=== PATIENT | female | born 2000 | race Hispanic/Latino ===

== ENCOUNTER 2018-04-04 04:15 | Emergency (ER) | payer BC, OTHER, SELFPAY ==
--- NOTE | 2018-04-04 04:40 | ER ---
Nurse's Notes [facility] Name: Ivette Brown Age: 18 yrs Sex: Female : 2000 Arrival Date: 04/04/2018 Time: 04:20 Bed 6 Private MD: Diagnosis: Valentine's palsy Presentation: 04/04 04:26 Presenting complaint: Patient states: she has a hx of Valentine's Palsy and is having aa1 another flare up. Reports the right side of her face started feeling strange last night around 1800 and this morning she noticed that the right side of her face was not animating as much as her left. States, "this is exactly what happened the last time when I had Valentine's Palsy.". Transition of care: patient was not received from another setting of care. Onset of symptoms was April 03, 2018 at 18:00. Risk Assessment: Do you want to hurt yourself or someone else? Patient reports no desire to harm self or others. Initial Sepsis Screen: Does the patient meet any 2 criteria? No. Patient's initial sepsis screen is negative. Does the patient have a suspected source of infection? No. Patient's initial sepsis screen is negative. Care prior to arrival: None. 04:26 Method Of Arrival: Ambulatory aa1 04:26 Acuity: SACHI 3 aa1 Triage Assessment: 04:30 General: Appears in no apparent distress. comfortable, Behavior is calm, cooperative, aa1 appropriate for age. Pain: Denies pain. 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 - Social history:: Smoking status: Patient/guardian denies using tobacco. - Ebola Screening: : No symptoms or risks identified at this time. - Family history:: not pertinent. Screenin:30 Abuse screen: Denies threats or abuse. Nutritional screening: No deficits noted. tl2 Tuberculosis screening: No symptoms or risk factors identified. Fall Risk None identified. Assessment: 04:30 General: Appears in no apparent distress. comfortable, Behavior is calm, cooperative, tl2 appropriate for age. Pain: Denies pain. Neuro: Level of Consciousness is awake, alert, obeys commands, Oriented to person, place, time, situation. Neuro: Conditioner Tumbler are equal bilaterally Speech is normal, Reports numbness in right side of face since 04/03/18 1800. Cardiovascular: Denies chest pain. Respiratory: Airway is patent Respiratory effort is even, unlabored, Respiratory pattern is regular, symmetrical. GI: No signs and/or symptoms were reported involving the gastrointestinal system. : No signs and/or symptoms were reported regarding the genitourinary system. Derm: Skin is pink, warm \\T\\ dry. Musculoskeletal: No signs and/or symptoms reported regarding the musculoskeletal system. 04:57 Reassessment: Patient appears in no apparent distress at this time. Patient and/or tl2 family updated on plan of care and expected duration. Pain level reassessed. Patient is alert, oriented x 3, equal unlabored respirations, skin warm/dry/pink. Pt verbalized understanding of discharge instructions, need for follow up and prescription usage. Vital Signs: 04:30 BP 133 / 83; Pulse 92; Resp 18; Temp 98.2; Pulse Ox 98% on R/A; Weight 111.13 kg; aa1 Height 5 ft. 3 in. (160.02 cm); Pain 0/10; 04:30 Body Mass Index 43.40 (111.13 kg, 160.02 cm) aa1 ED Course: 04:20 Patient arrived in ED. es 04:28 Triage completed. aa1 04:30 Arm band placed on right wrist. aa1 04:30 Patient has correct armband on for positive identification. Bed in low position. Call tl2 light in reach. Side rails up X 1. 04:31 Kendrick Thompson MD is Attending Physician. julio c 04:39 Delano Velazquez MD is Referral Physician. julio c 04:55 Chery Jerez RN is Primary Nurse. tl2 04:57 No provider procedures requiring assistance completed. Patient did not have IV access tl2 during this emergency room visit. Administered Medications: 04:50 Drug: valACYclovir 1000 mg Route: PO; tl2 04:59 Follow up: Response: No adverse reaction; Medication administered at discharge. tl2 04:50 Drug: predniSONE 60 mg Route: PO; tl2 04:59 Follow up: Response: No adverse reaction; Medication administered at discharge. tl2 Outcome: 04:39 Discharge ordered by . julio c 04:57 Discharged to home ambulatory, with family. tl2 04:57 Condition: stable 04:57 Discharge instructions given to patient, Instructed on discharge instructions, follow up and referral plans. medication usage, Demonstrated understanding of instructions, follow-up care, medications, Prescriptions given X 3. 04:59 Patient left the ED. tl2 Signatures: Berkley Borja, RN RN aa1 Kendrick Thompson MD MD cha Salyer, Edna es Knox, Taylor, RN RN tl2
--- NOTE | 2018-04-04 04:40 | EDPHYS ---
Physician Documentation [facility] Name: Ivette Brown Age: 18 yrs Sex: Female : 2000 Arrival Date: 04/04/2018 Time: 04:20 Bed 6 Private MD: ED Physician Kendrick Thompson HPI: 04/04 04:35 This 18 yrs old Female presents to ER via Ambulatory with complaints of julio c Numbness Of Face. 04:35 The patient's problem is reported as a facial droop, on right. Onset: The julio c symptoms/episode began/occurred 2 day(s) ago. Duration: The episode is continuous, the symptoms became worse 1 day(s) ago. Context: the episode(s) was witnessed, by family. The symptoms are alleviated by nothing. The symptoms are aggravated by nothing. Associated signs and symptoms: The patient has no apparent associated signs or symptoms. Severity of symptoms: At their worst the symptoms were mild moderate in the emergency department the symptoms are unchanged. Patient's baseline: Neuro: alert and fully oriented. The patient has experienced a previous episode, last year. 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 - Social history:: Smoking status: Patient/guardian denies using tobacco. - Ebola Screening: : No symptoms or risks identified at this time. - Family history:: not pertinent. ROS: 04:35 Constitutional: Negative for fever, chills, and weight loss, Eyes: Negative for injury, julio c pain, redness, and discharge, ENT: Negative for injury, pain, and discharge, Neck: Negative for injury, pain, and swelling, Cardiovascular: Negative for chest pain, palpitations, and edema, Respiratory: Negative for shortness of breath, cough, wheezing, and pleuritic chest pain, Abdomen/GI: Negative for abdominal pain, nausea, vomiting, diarrhea, and constipation, Back: Negative for injury and pain, : Negative for injury, bleeding, discharge, and swelling, MS/Extremity: Negative for injury and deformity, Skin: Negative for injury, rash, and discoloration, Psych: Negative for depression, anxiety, suicide ideation, homicidal ideation, and hallucinations, Allergy/Immunology: Negative for hives, rash, and allergies, Endocrine: Negative for neck swelling, polydipsia, polyuria, polyphagia, and marked weight changes, Hematologic/Lymphatic: Negative for swollen nodes, abnormal bleeding, and unusual bruising. 04:35 Neuro: Positive for weakness, of the forehead, right eye, right cheek and right jaw. Exam: 04:35 Constitutional: This is a well developed, well nourished patient who is awake, alert, julio c and in no acute distress. Head/Face: Normocephalic, atraumatic. Eyes: Pupils equal round and reactive to light, extra-ocular motions intact. Lids and lashes normal. Conjunctiva and sclera are non-icteric and not injected. Cornea within normal limits. Periorbital areas with no swelling, redness, or edema. ENT: Nares patent. No nasal discharge, no septal abnormalities noted. Tympanic membranes are normal and external auditory canals are clear. Oropharynx with no redness, swelling, or masses, exudates, or evidence of obstruction, uvula midline. Mucous membranes moist. Neck: Trachea midline, no thyromegaly or masses palpated, and no cervical lymphadenopathy. Supple, full range of motion without nuchal rigidity, or vertebral point tenderness. No Meningismus. Chest/axilla: Normal chest wall appearance and motion. Nontender with no deformity. No lesions are appreciated. Cardiovascular: Regular rate and rhythm with a normal S1 and S2. No gallops, murmurs, or rubs. Normal PMI, no JVD. No pulse deficits. Respiratory: Lungs have equal breath sounds bilaterally, clear to auscultation and percussion. No rales, rhonchi or wheezes noted. No increased work of breathing, no retractions or nasal flaring. Abdomen/GI: Soft, non-tender, with normal bowel sounds. No distension or tympany. No guarding or rebound. No evidence of tenderness throughout. Back: No spinal tenderness. No costovertebral tenderness. Full range of motion. Skin: Warm, dry with normal turgor. Normal color with no rashes, no lesions, and no evidence of cellulitis. MS/ Extremity: Pulses equal, no cyanosis. Neurovascular intact. Full, normal range of motion. Psych: Awake, alert, with orientation to person, place and time. Behavior, mood, and affect are within normal limits. 04:35 Neuro: Orientation: is normal, appropriate for stated age, no acute changes, Mentation: is normal, appropriate for stated age, no acute changes, Memory: is normal, appropriate for stated age, no acute changes, Cranial nerves: grossly normal, is grossly normal based on the patient's age, no acute changes, Cerebellar function: is grossly normal, is grossly normal based on the patient's age, no acute changes, Motor: no acute changes, Sensation: is normal, Gait: is steady, appropriate for age, Babinski testing is normal. 04:37 CT study not indicated or reported. Reason for not performing CT: not necessary [facility] Vital Signs: 04:30 BP 133 / 83; Pulse 92; Resp 18; Temp 98.2; Pulse Ox 98% on R/A; Weight 111.13 kg; aa1 Height 5 ft. 3 in. (160.02 cm); Pain 0/10; 04:30 Body Mass Index 43.40 (111.13 kg, 160.02 cm) aa1 MDM: 04:31 Patient medically screened. [facility] 04:37 Data reviewed: vital signs, nurses notes. [facility] 04/04 04:41 Order name: Misc. Order: patch eye closed; Complete Time: 04:50 [facility] Administered Medications: 04:50 Drug: valACYclovir 1000 mg Route: PO; tl2 04:59 Follow up: Response: No adverse reaction; Medication administered at discharge. 2 04:50 Drug: predniSONE 60 mg Route: PO; tl2 04:59 Follow up: Response: No adverse reaction; Medication administered at discharge. tl2 Disposition: 04/04/18 04:39 Discharged to Home. Impression: Valentine's palsy. - Condition is Stable. - Discharge Instructions: Valentine Palsy, Adult. - Prescriptions for Artificial Tears - place 1 application by OPHTHALMIC route 6 times per day; 20 milliliter. Valtrex 1 g Oral Tablet - take 1 tablet by ORAL route every 8 hours for 7 days; 21 tablet. Prednisone 20 mg Oral Tablet - take 2 tablet by ORAL route once daily for 5 days; 10 tablet. - Medication Reconciliation Form, Thank You Letter, Antibiotic Education, Prescription Opioid Use, Work release form, Family Work Release form. - Follow up: Private Physician; When: 2 - 3 days; Reason: Recheck today's complaints, Continuance of care, Re-evaluation by your physician. Follow up: Delano Velazquez MD; When: 2 - 3 days; Reason: Recheck today's complaints, Re-evaluation by your physician. - Problem is new. - Symptoms have improved. Signatures: Berkley Borja RN RN aa1 Kendrick Thompson MD MD cha Knox, Taylor, RN RN tl2 Corrections: (The following items were deleted from the chart) 04:59 04:39 04/04/2018 04:39 Discharged to Home. Impression: Valentine's palsy. Condition is tl2 Stable. Forms are Medication Reconciliation Form, Thank You Letter, Antibiotic Education, Prescription Opioid Use. Follow up: Private Physician; When: 2 - 3 days; Reason: Recheck today's complaints, Continuance of care, Re-evaluation by your physician. Follow up: Delano Velazquez; When: 2 - 3 days; Reason: Recheck today's complaints, Re-evaluation by your physician. Problem is new. Symptoms have improved. julio c
[2018-04-04] MEDS ORDERED: predniSONE 20 MG TAB ONE (04:53)
[2018-04-04] MEDS ORDERED: VALACYCLOVIR 500 MG TAB ONE (04:53)
== END 2018-04-04 04:59 | disposition home or self-care (01) ==
LOC: ER 04:15
DX: G51.0 Bell's palsy (principal)
CPT/HCPCS: 99283; J7512

== ENCOUNTER 2018-04-20 05:55 | Emergency (ER) | payer BC ==
[2018-04-20 06:21] LABS: Urine Blood NEGATIVE (NEG); Urine Glucose NEGATIVE (NEG); Urine Protein NEGATIVE (NEG); Urine Specific Gravity 1.025 (1.005-1.030)
[2018-04-20] MEDS ORDERED: KETOROLAC 30 MG/ML INJ ONE (06:24)
[2018-04-20] MEDS ORDERED: ONDANSETRON 4 MG/2 ML VIAL ONE (06:24)
[2018-04-20] MEDS ORDERED: NA CHLORIDE 0.9% 1,000 ML ONE (06:24)
[2018-04-20 06:31] LABS: Absolute Lymphocytes (CBC) 1.1 K/uL (0.7-4.9); Absolute Monocytes 0.7 K/uL (0.1-1.3); Absolute Neutrophil 10.4 K/uL (1.8-8.0); Basophils % 0.2 % (0-1.3); Eosinophils % 0.5 % (0-4.4); Hematocrit 43.5 % (36.0-45.0); Lymphocytes % 8.6 % (15.3-44.8); MPV 11.1 fL (7.6-11.3); Monocytes % 5.6 % (3.3-12.3); RBC Red Blood Cell Count 5.17 M/uL (3.86-4.86)
[2018-04-20 06:39] LABS: ALT/SGPT 55 U/L (12-78); AST/SGOT 32 U/L (15-37); Albumin 3.8 g/dL (3.4-5.0); Alkaline Phosphatase 60 U/L (45-117); BUN Blood Urea Nitrogen 16 mg/dL (7-18); Bicarbonate 26 mmol/L (21-32); Bilirubin Direct 0.2 mg/dL (0-0.2); Bilirubin Total 0.7 mg/dL (0.2-1.0); Glucose Level 126 mg/dL (74-106); Lipase 83 U/L (73-393); Potassium 3.9 mmol/L (3.5-5.1); Protein, Total 7.9 g/dL (6.4-8.2); Sodium Level 142 mmol/L (136-145)
[2018-04-20 07:14] LABS: Urine White Blood Cell Casts SCAN
[2018-04-20 07:15] LABS: Blood Morphology Comment NOT SEEN (NOT SEEN); Platelet Estimate ADEQ; Platelets, Giant RARE
[2018-04-20] MEDS ORDERED: MAGNE/ALUM HYDROXD 30 ML UCUP ONE (07:15)
[2018-04-20] MEDS ORDERED: FAMOTIDINE 20 MG/2 ML VIAL IV ONE (07:15)
[2018-04-20] MEDS ORDERED: LIDOCAINE VISCOUS 2% SOLN 15 ML UDC ONE (07:15)
--- NOTE | 2018-04-20 07:33 | ER ---
Nurse's Notes [facility] Name: Ivette Brown Age: 18 yrs Sex: Female : 2000 Arrival Date: 04/20/2018 Time: 05:58 Bed 19 Private MD: Diagnosis: Upper abdominal pain, unspecified Presentation: 04/20 06:04 Presenting complaint: Patient states: she woke up around 0100 with abdominal pain and bb nausea denies vomiting, but states she has been waking up every hour with a bowel movement. Transition of care: patient was not received from another setting of care. Onset of symptoms was April 20, 2018. Risk Assessment: Do you want to hurt yourself or someone else? Patient reports no desire to harm self or others. Initial Sepsis Screen: Does the patient meet any 2 criteria? No. Patient's initial sepsis screen is negative. Does the patient have a suspected source of infection? No. Patient's initial sepsis screen is negative. Care prior to arrival: None. 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 - Social history:: Smoking status: Patient/guardian denies using tobacco. - Ebola Screening: : No symptoms or risks identified at this time. Screenin:20 Abuse screen: Denies threats or abuse. Denies injuries from another. Nutritional rr5 screening: No deficits noted. Tuberculosis screening: No symptoms or risk factors identified. Fall Risk Total Taylor Fall Scale indicates No Risk (0-24 pts). Assessment: 06:10 General: Appears in no apparent distress. comfortable, Behavior is calm, cooperative, rr5 appropriate for age. Pain: Complains of pain in abdomen Pain does not radiate. Pain currently is 9 out of 10 on a pain scale. Quality of pain is described as aching, Pain began suddenly, Is intermittent. Neuro: Level of Consciousness is awake, alert, obeys commands, Oriented to person, place, time, situation, Appropriate for age. Cardiovascular: Capillary refill < 3 seconds Patient's skin is warm and dry. Respiratory: Airway is patent Respiratory effort is even, unlabored, Respiratory pattern is regular, symmetrical. GI: Abdomen is obese, Bowel sounds present X 4 quads. Abd is soft and non tender. : No signs and/or symptoms were reported regarding the genitourinary system. EENT: No signs and/or symptoms were reported regarding the EENT system. Derm: Skin temperature is warm. Musculoskeletal: Capillary refill < 3 seconds, Range of motion: intact in all extremities. 06:10 GI: Reports lower abdominal pain, upper abdominal pain, nausea, Pain is 9 out of 10 on rr5 a pain scale. 06:56 Reassessment: Patient appears in no apparent distress at this time. Patient is alert, rr5 oriented x 3, equal unlabored respirations, skin warm/dry/pink. ultrasound at bedside done. awaiting for result. Patient states symptoms have improved. 07:43 Reassessment: Patient appears in no apparent distress at this time. Patient and/or tw2 family updated on plan of care and expected duration. Pain level reassessed. Patient is alert, oriented x 3, equal unlabored respirations, skin warm/dry/pink. Patient states symptoms have improved. Vital Signs: 06:07 BP 136 / 72; Pulse 110; Resp 16 S; Temp 98.6(O); Pulse Ox 97% on R/A; Weight 108.86 kg bb (R); Height 5 ft. 3 in. (160.02 cm) (R); Pain 9/10; 06:54 BP 131 / 69; Pulse 101; Resp 18; Pulse Ox 99% ; rr5 07:42 BP 129 / 86; Pulse 84; Resp 17; Pulse Ox 99% on R/A; tw2 06:07 Body Mass Index 42.51 (108.86 kg, 160.02 cm) bb ED Course: 05:58 Patient arrived in ED. es 06:00 Mendy Cannon FNP-C is PHCP. kb 06:00 Jose Gomez MD is Attending Physician. kb 06:05 Yobani Plummer, HUMBERTO is Primary Nurse. rr5 06:06 Triage completed. bb 06:07 Arm band placed on Patient placed in an exam room, on a stretcher, on pulse oximetry. bb Family accompanied patient. 06:10 Patient has correct armband on for positive identification. Bed in low position. Call rr5 light in reach. Side rails up X2. Pulse ox on. NIBP on. Warm blanket given. 06:10 Initial lab(s) drawn, by me, sent to lab. Inserted saline lock: 20 gauge in right bb antecubital area, using aseptic technique. Blood collected. 07:01 US Abdomen Limited In Process Unspecified. EDMS 07:13 Primary Nurse role handed off by Yobani Plummer, RN tw2 07:13 Paula Morales, RN is Primary Nurse. tw2 07:41 No provider procedures requiring assistance completed. IV discontinued, intact, tw2 bleeding controlled, No redness/swelling at site. Pressure dressing applied. Administered Medications: 06:18 Drug: Zofran 4 mg Route: IVP; Site: right antecubital; rr5 06:53 Follow up: Response: No adverse reaction rr5 06:20 Drug: TORadol 30 mg Route: IVP; Site: right antecubital; rr5 06:53 Follow up: Response: No adverse reaction rr5 06:25 Drug: NS 0.9% 1000 ml Route: IV; Rate: 1000 ml; Site: right antecubital; rr5 06:53 Follow up: IV Status: Infusion continued; IV Intake: 400ml rr5 07:08 Drug: GI Cocktail without - (Maalox Suspension 30 ml, Lidocaine Liquid 2 % 15 tw2 ml) Route: PO; 07:44 Follow up: Response: No adverse reaction tw2 07:08 Drug: Pepcid 20 mg Route: IVP; Site: right antecubital; tw2 07:44 Follow up: Response: No adverse reaction tw2 Intake: 06:53 IV: 400ml; Total: 400ml. rr5 Outcome: 07:32 Discharge ordered by MD. cole 07:43 Discharged to home ambulatory, with significant other. tw2 07:43 Condition: stable 07:43 Discharge instructions given to patient, significant other, Instructed on discharge instructions, follow up and referral plans. no drinking with medication, no driving heavy equipment, medication usage, Demonstrated understanding of instructions, follow-up care, medications. 07:45 Patient left the ED. tw2 Signatures: Dispatcher [employer] Mendy Martinez, CEMENTER MACHINE JOINER-C CEMENTER MACHINE JOINER-Ckb Anna Marie Gloria Brenda, RN RN bb Paula Morales, RN RN tw2 Yobani Plummer, RN RN rr5
--- NOTE | 2018-04-20 07:33 | EDPHYS ---
Physician Documentation [facility] Name: Ivette Brown Age: 18 yrs Sex: Female : 2000 Arrival Date: 04/20/2018 Time: 05:58 Bed 19 Private MD: ED Physician Jose Gomez HPI: 04/20 06:21 This 18 yrs old Female presents to ER via Ambulatory with complaints of kb Abdominal Problem. 06:21 The patient presents with abdominal pain in the upper abdomen. Onset: The kb symptoms/episode began/occurred this morning, at 01:00. The symptoms do not radiate. Associated signs and symptoms: Pertinent positives: nausea, Pertinent negatives: diarrhea, fever, vomiting. The symptoms are described as constant. Modifying factors: The symptoms are alleviated by nothing, the symptoms are aggravated by nothing. Severity of pain: At its worst the pain was mild moderate in the emergency department the pain is unchanged. The patient has not experienced similar symptoms in the past. The patient has not recently seen a physician. Pt reports she woke up with generalized abd pain at 0100. Reports nausea, no fever, diarrhea or vomiting. Has not had this pain in the past. Denies urinary symptoms. . 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 - Social history:: Smoking status: Patient/guardian denies using tobacco. - Ebola Screening: : No symptoms or risks identified at this time. ROS: 06:21 Constitutional: Negative for fever, chills, and weight loss, Neck: Negative for injury, kb pain, and swelling, Cardiovascular: Negative for chest pain, palpitations, and edema, Respiratory: Negative for shortness of breath, cough, wheezing, and pleuritic chest pain, Back: Negative for injury and pain, : Negative for injury, bleeding, discharge, and swelling, MS/Extremity: Negative for injury and deformity, Skin: Negative for injury, rash, and discoloration, Neuro: Negative for headache, weakness, numbness, tingling, and seizure. 06:21 Abdomen/GI: Positive for abdominal pain, nausea, Negative for vomiting, diarrhea, constipation, abdominal cramps, abdominal distension, anorexia. Exam: 06:21 Constitutional: This is a well developed, well nourished patient who is awake, alert, kb and in no acute distress. Head/Face: Normocephalic, atraumatic. ENT: Nares patent. No nasal discharge, no septal abnormalities noted. Tympanic membranes are normal and external auditory canals are clear. Oropharynx with no redness, swelling, or masses, exudates, or evidence of obstruction, uvula midline. Mucous membranes moist. Neck: Trachea midline, no thyromegaly or masses palpated, and no cervical lymphadenopathy. Supple, full range of motion without nuchal rigidity, or vertebral point tenderness. No Meningismus. Chest/axilla: Normal chest wall appearance and motion. Nontender with no deformity. No lesions are appreciated. Cardiovascular: Regular rate and rhythm with a normal S1 and S2. No gallops, murmurs, or rubs. Normal PMI, no JVD. No pulse deficits. Respiratory: Lungs have equal breath sounds bilaterally, clear to auscultation and percussion. No rales, rhonchi or wheezes noted. No increased work of breathing, no retractions or nasal flaring. Back: No spinal tenderness. No costovertebral tenderness. Full range of motion. Skin: Warm, dry with normal turgor. Normal color with no rashes, no lesions, and no evidence of cellulitis. MS/ Extremity: Pulses equal, no cyanosis. Neurovascular intact. Full, normal range of motion. Neuro: Awake and alert, GCS 15, oriented to person, place, time, and situation. Cranial nerves II-XII grossly intact. Motor strength 5/5 in all extremities. Sensory grossly intact. Cerebellar exam normal. Normal gait. 06:21 Abdomen/GI: Inspection: obese Bowel sounds: normal, in all quadrants, Palpation: soft, in all quadrants, mild abdominal tenderness, in the right upper quadrant and left upper quadrant. Vital Signs: 06:07 BP 136 / 72; Pulse 110; Resp 16 S; Temp 98.6(O); Pulse Ox 97% on R/A; Weight 108.86 kg bb (R); Height 5 ft. 3 in. (160.02 cm) (R); Pain 9/10; 06:54 BP 131 / 69; Pulse 101; Resp 18; Pulse Ox 99% ; rr5 07:42 BP 129 / 86; Pulse 84; Resp 17; Pulse Ox 99% on R/A; tw2 06:07 Body Mass Index 42.51 (108.86 kg, 160.02 cm) bb MDM: 06:00 Patient medically screened. kb 06:23 Data reviewed: vital signs, nurses notes. Data interpreted: Pulse oximetry: on room air kb is 97 %. Interpretation: normal. 07:01 Counseling: I had a detailed discussion with the patient and/or guardian regarding: the kb historical points, exam findings, and any diagnostic results supporting the discharge/admit diagnosis, lab results, radiology results, the need for outpatient follow up, a family practitioner, to return to the emergency department if symptoms worsen or persist or if there are any questions or concerns that arise at home. 04/20 06:07 Order name: Basic Metabolic Panel; Complete Time: 06:43 kb 04/20 06:07 Order name: CBC with Diff; Complete Time: 07:17 kb 04/20 06:07 Order name: Hepatic Function; Complete Time: 06:43 kb 04/20 06:07 Order name: Lipase; Complete Time: 06:43 kb 04/20 06:13 Order name: Urine Dipstick--Ancillary (enter results); Complete Time: 06:23 mw2 04/20 06:13 Order name: Urine --Ancillary (enter results); Complete Time: 06:23 mw2 04/20 06:07 Order name: IV Saline Lock; Complete Time: 06:16 kb 04/20 06:32 Order name: CBC Smear Scan; Complete Time: 07:17 EDMS 04/20 06:43 Order name: US Abdomen Limited kb 04/20 06:07 Order name: Labs collected and sent; Complete Time: 06:16 kb 04/20 06:07 Order name: Urine Dipstick-Ancillary (obtain specimen); Complete Time: 06:16 kb Administered Medications: 06:18 Drug: Zofran 4 mg Route: IVP; Site: right antecubital; rr5 06:53 Follow up: Response: No adverse reaction rr5 06:20 Drug: TORadol 30 mg Route: IVP; Site: right antecubital; rr5 06:53 Follow up: Response: No adverse reaction rr5 06:25 Drug: NS 0.9% 1000 ml Route: IV; Rate: 1000 ml; Site: right antecubital; rr5 06:53 Follow up: IV Status: Infusion continued; IV Intake: 400ml rr5 07:08 Drug: GI Cocktail without - (Maalox Suspension 30 ml, Lidocaine Liquid 2 % 15 tw2 ml) Route: PO; 07:44 Follow up: Response: No adverse reaction tw2 07:08 Drug: Pepcid 20 mg Route: IVP; Site: right antecubital; tw2 07:44 Follow up: Response: No adverse reaction tw2 Disposition: 18:21 Co-signature as Attending Physician, Jose Gomez MD I agree with the assessment and tw4 plan of care. Disposition: 04/20/18 07:32 Discharged to Home. Impression: Upper abdominal pain, unspecified. - Condition is Stable. - Discharge Instructions: Abdominal Pain, Adult, [id number]. - Prescriptions for Bentyl 20 mg Oral Tablet - take 1 tablet by ORAL route every 6 hours As needed; 20 tablet. Zofran 4 mg Oral Tablet - take 1 tablet by ORAL route every 6 hours As needed; 20 tablet. - Medication Reconciliation Form, Thank You Letter, Antibiotic Education, Prescription Opioid Use, Work release form, Family Work Release form. - Follow up: Emergency Department; When: As needed; Reason: Worsening of condition. Follow up: Private Physician; When: 2 - 3 days; Reason: Recheck today's complaints, Continuance of care, Re-evaluation by your physician. Signatures: Dispatcher [employer] [facility] Mendy Cannon, JOSHUA TORRES-Annmarie Montano, RN RN bb Paula Morales RN RN tw2 Jose Gomez MD MD tw4 Yobani Plummer, RN RN rr5 Corrections: (The following items were deleted from the chart) 07:45 07:32 04/20/2018 07:32 Discharged to Home. Impression: Upper abdominal pain, tw2 unspecified. Condition is Stable. Discharge Instructions: Abdominal Pain, Adult, [id number]. Prescriptions for Bentyl 20 mg Oral Tablet - take 1 tablet by ORAL route every 6 hours As needed; 20 tablet, Zofran 4 mg Oral Tablet - take 1 tablet by ORAL route every 6 hours As needed; 20 tablet. and Forms are Work release form, Family Work Release, Medication Reconciliation Form, Thank You Letter, Antibiotic Education, Prescription Opioid Use. Follow up: Emergency Department; When: As needed; Reason: Worsening of condition. Follow up: Private Physician; When: 2 - 3 days; Reason: Recheck today's complaints, Continuance of care, Re-evaluation by your physician. kb
--- NOTE | 2018-04-20 08:19 | RAD REPORT ---
EXAM DESCRIPTION: US - Abdomen Exam Limited - 04/20/2018 7:01 am CLINICAL HISTORY: ABD PAIN COMPARISON: Abdomen Exam Complete dated 06/05/2015 FINDINGS: The gallbladder demonstrates no gallstones. No pericholecystic fluid or gallbladder wall t hickening. The common bile duct is normal measuring 4 mm. The liver demonstrates no findings of intrahepatic biliary dilatation. IMPRESSION: Unremarkable examination.
== END 2018-04-20 07:45 | disposition home or self-care (01) ==
LOC: ER 05:55
DX: R10.10 Upper abdominal pain, unspecified (principal)
CPT/HCPCS: 36415; 76705; 80048; 80076; 81003; 81025; 83690; 85025; J2405; J7030

== ENCOUNTER 2018-09-26 11:51 | Emergency (ER) | payer BC ==
--- OUTSIDE RECORDS SUMMARY | 2018-09-26 11:56 | XMS REPORT | Continuity of Care Document ---
:2000 Author Organization [employer] Care Team Providers Name Role Phone [employer] Unavailable Unavailable Problems Problem Status Onset Classification Date Comments Source Date Reported Discharge 08/28/19 08/30/2016 [place] Diagnosis: [place] Pyelonephritis ABD PAIN Active 08/28/19 [place] [facility] [place] BLEEDING FROM Active 02/11/20 [place] MOUTH 15 [place] POSTOP BLEEDING Active 02/11/[address] [facility] POSTOP Active 02/11/20 [facility] TONSILLECTOMY 15 [facility] BLEED Center ABDOMINAL/BACK Active 02/23/19 [place] PAIN 13 [place] Enlarged tonsils Resolved 02/22/19 Problem 08/30/[address], [place] Medications Medication Details Route Status Patient Ordering Order Source Instructions Provider Date Ondansetron 4 MG 4 mg=1 tab, Active [place] Disintegrating PO, TID, PRN 2016 [facility] Tablet [Zofran] Nausea and Vomiting, X 4 day, # 10 tab, 0 Refill(s) Cephalexin 750 750 mg=1 cap, Active [place] MG Oral Capsule PO, Q8H, june 2016 [place] [Keflex] substitute 250 mg tabs/capsules if needed, X 10 day, # 30 cap, 0 Refill(s) Acetaminophen 650 mg=2 cap, Active [place] 325 MG Oral PO, Q4H, PRN 2016 [facility] Capsule fever, X 5 [Tylenol] day, # 60 cap, 0 Refill(s) Morphine 4 mg, Route: Inactive [place] IVP, ONCE, 2016 [facility] Dosing Weight 91.392, kg, Priority: STAT, Start date: 08/27/16 19:59:00 CDT, Stop date: 08/27/16 19:59:00 CDT Ondansetron 4 mg, Route: Inactive [place] IVP, ONCE, 2016 [facility] Dosing Weight 91.392, kg, Priority: STAT, Start date: 08/27/16 19:59:00 CDT, Stop date: 08/27/16 19:59:00 CDT Ceftriaxone 1 gm, Route: Inactive [place] IVPB, Drug 2016 [place] form: PDR/INJ, ONCE, Dosing Weight 91.392, kg, Priority: STAT, Start date: 08/27/16 19:59:00 CDT, Duration: 1 doses or times, Stop date: 08/27/16 19:59:00 CDT, ABX Indication: Urinary Tract Infection Acetaminophen 975 mg, Route: Inactive [place] PO, Drug form: 2017 [place] TAB, ONCE, Dosing Weight 91.392, kg, Start date: 08/27/16 19:59:00 CDT, Stop date: 08/27/16 19:59:00 CDT Sodium Chloride 1,000 mL, Inactive [place] 0.154 MEQ/ML 2,000 ml/hr, 2017 [place] Injectable Route: IV, Solution ONCE, Priority: STAT, Dosing Weight 91.392 kg, Start date: 08/27/16 19:59:00 CDT, Duration: 1 doses or times, Stop date: 08/27/16 19:59:00 CDT Saline Flush 10 mL, Route: Inactive [place] 0.9% IVP, Drug 2016 [place] Form: INJ, Dosing Weight 91.392, kg, PRN, PRN Line Flush, Start date: 08/27/16 19:59:00 CDT, Duration: 30 day, Stop date: 09/26/16 19:58:00 CDTNotes: (Same as: BD Posiflush) Hydromorphone 0.3528 mg, No Longer [place] 0.18 mL, Active 2014 Medical Route: IVP, Center Drug form: INJ, ONCE, Dosing Weight 88.2, kg, PRN Pain Score 4-6, Start date: 02/10/15 9:09:00, Duration: 24 hr, Stop date: 02/11/15 9:08:00Notes: Same as: Dilaudid Acetaminophen 12 mL, Route: No Longer 02/10/ [place] 21.7 MG/ML / PO, Drug Form: Active 2014 Medical Hydrocodone SOLN, Dosing Center Bitartrate 0.67 Weight 88.2, MG/ML Oral kg, Q6H, PRN Solution Pain Score 4-6, Start date: 02/10/15 8:54:00, Duration: 30 day, Stop date: 03/12/15 8:53:00Notes: Do not exceed 4gm/day of acetaminophen. (Same as: Zolvit) Famotidine 20 mg, Route: Inactive [place] IV, ONCE, 2014 Medical Dosing Weight Center 88.2, kg, Start date: 02/10/15 7:02:00, Stop date: 02/10/15 7:02:00 Zofran 4 mg, Route: Inactive 02/10[facility] IVP, Drug 2014 Medical form: INJ, Center ONCE, Dosing Weight 88.2, kg, Priority: STAT, Start date: 02/10/15 7:02:00, Stop date: 02/10/15 7:02:00 Sodium Chloride 1,000 mL, Inactive [place] 0.154 MEQ/ML 1,000 ml/hr, 2014 Medical Injectable Infuse Over: 1 Center Solution hr, Route: IV, ONCE, Priority: STAT, Dosing Weight 88.2 kg, Start date: 02/10/15 7:01:00, Duration: 1 doses or times, Stop date: 02/10/15 7:01:00 Afrin Severe 2 spray, Inactive [facility] Congestion Route: NASAL, 2014 Medical Drug Form: [place] CLAUS, Dosing Weight 88.2, kg, ONCE, Start date: 02/10/15 6:57:00, Stop date: 02/10/15 6:57:00Notes: (Same as: Afrin) Isolyte S PH-7.4 1,000 mL, Inactive 02/10[facility] ([place]) IV Route: IV, 2014 Medical Dosing Weight Center 88.2, kg, ONCE, Start date: 02/10/15 6:53:00, Stop date: 02/10/15 6:53:00 Morphine 2 mg, Route: Inactive [place] IVP, Drug 2014 [place] form: INJ, ONCE, Dosing Weight 89.091, kg, Priority: STAT, Start date: 02/10/15 4:37:00, Stop date: 02/10/15 4:37:00 Zofran ODT 4 mg, Route: Inactive [place] PO, Drug form: 2014 [place] TABDIS, ONCE, Dosing Weight 89.091, kg, Priority: STAT, Start date: 02/10/15 4:37:00, Stop date: 02/10/15 4:37:00 NS + KCL 20mEq/L 1,000 mL, Inactive [place] 1000ml (Premix) Rate: 100 2014 [place] 1,000 mL ml/hr, Infuse over: 10 hr, Route: IV, Dosing Weight 89.091 kg, Total Volume: 1,000, Start date: 02/10/15 3:33:00, Duration: 30 day, Stop date: 03/12/15 3:32:00Notes: PREMIX IV - Do Not Alter Motrin 600 mg 600 mg, 1 tab, PO Active Eliud [place] oral tablet PO, Q8H, PRN, 2012 [facility] take with food, 30 tab, Pain, Substitution Allowedtake with food [place] 5/325 oral 1 tab, Route: PO No Longer Eliud [place] tablet PO, Dosing Active 2012 [place] Weight 83.636, kg, ONCE, STAT, Start date: 02/24/12 17:41:00, Stop date: 02/24/12 17:41:00 Allergies, Adverse Reactions, Alerts No Known Medication Allergies Immunizations No Data Provided for This Section Results Order Name Results Value Reference Date Interpretation Comments Source Range CHEM PANEL Procalcitonin 0.10 0.00 - 07 [place] Lvl 0.10 [facility] CHEM PANEL Lactic Acid 0.7 0.5 - 2.2 08/28 [place] Lvl [facility] CHEM PANEL B/C Ratio 13 6 - 25 08/28 [place] CHEM PANEL Globulin 4.1 2.7 - 4.2 08/28 [place] [facility] CHEM PANEL AGAP 13.5 10.0 - 08/28 [place] 20.0 /2016 [place] CHEM PANEL A/G Ratio 0.9 0.7 - 1.6 08/28 [place] CHEM PANEL eGFR 127 08/28 Result Comment: The [facility] eGFR is calculated using the CKD-EPI formula. In most young, healthy individuals the eGFR will be >90 mL/min/1.73m2 . The eGFR declines with age. An eGFR of 60-89 may be normal in some populations, particularly the elderly, for whom the CKD-EPI formula has not been extensively validated. Use of the eGFR is not recommended in the following populations:< br/>
Jennyfer viduals with unstable creatinine concentration s, including patients and those with serious co-morbid conditions.<b r/>
Patie nts with extremes in muscle mass or diet.

The data above are obtained from the National Kidney Disease Education Program (NKDEP) which additionally recommends that when the eGFR is used in patients with extremes of body mass index for purposes of drug dosing, the eGFR should be multiplied by the estimated BMI. CHEM PANEL Calcium Lvl 8.2 8.5 - 10.5 08/28 [place] CHEM PANEL Total Protein 7.6 6.4 - 8.4 08/28 [place] CHEM PANEL Albumin Lvl 3.5 3.5 - 5.0 08/28 [place] CHEM PANEL CO2 24 24 - 32 08/28 [place] CHEM PANEL Chloride Lvl 102 95 - 109 08/28 [place] CHEM PANEL Sodium Lvl 136 135 - 145 08/28 [place] CHEM PANEL Potassium Lvl 3.5 3.5 - 5.1 08/28 [place] CHEM PANEL ALT 47 0 - 65 08/28 [place] CHEM PANEL Bili Total 1.1 0.2 - 1.3 08/28 [place] CHEM PANEL Alk Phos 56 39 - 136 08/28 [place] CHEM PANEL AST 33 0 - 37 08/28 [place] CHEM PANEL Creatinine 0.70 0.50 - 07 MH [place] Lvl 1.40 /2016 [place] CHEM PANEL Glucose Lvl 96 70 - 99 08/28 [place] CHEM PANEL BUN 9 7 - 22 08/28 [place] ENDOCRINOLO S Preg Negative Negative 08/28 [facility] *NA* /2016 [place] (08/27/16 8:09 PM) HEMATOLOGY Segs-Bands # 9.0 1.5 - 8.1 08/28 [place] HEMATOLOGY Basophils # 0.0 0.0 - 0.2 08/28 [place] HEMATOLOGY Basophils 0.2 0.0 - 1.0 08/28 [place] HEMATOLOGY Eosinophils 0.3 0.0 - 4.0 08/28 [place] HEMATOLOGY Lymphocytes # 1.1 1.0 - 5.5 08/28 [place] HEMATOLOGY Monocytes # 0.7 0.0 - 0.8 08/28 [place] HEMATOLOGY Eosinophils # 0.0 0.0 - 0.5 08/28 [place] HEMATOLOGY Lymphocytes 9.8 20.0 - 08/28 [place] 40.0 /2016 [place] HEMATOLOGY Monocytes 6.4 2.0 - 12.0 08/28 [place] HEMATOLOGY Segs 83.3 45.0 - 08/28 [place] 75.0 /2016 [place] HEMATOLOGY Platelet 69 133 - 450 08/28 [facility] HEMATOLOGY RDW 15.3 11.5 - 08/28 [place] 14.5 /2016 [facility] HEMATOLOGY MPV 10.9 7.4 - 10.4 08/28 [facility] HEMATOLOGY WBC 10.8 3.7 - 10.4 08/28 [facility] HEMATOLOGY RBC 4.72 4.20 - 08/28 [place] 5.40 /2016 [facility] HEMATOLOGY MCV 83.1 80.0 - 08/28 [place] 98.0 /2016 [facility] HEMATOLOGY Hct 39.2 36.0 - 08/28 [place] 48.0 [facility] HEMATOLOGY Hgb 13.1 12.0 - 08/28 [place] 16.0 /2016 [facility] HEMATOLOGY MCHC 33.3 32.0 - 08/28 [place] 36.0 /2016 [facility] HEMATOLOGY MCH 27.7 27.0 - 08/28 [place] 31.0 [place] URINE AND UA Mucus Few /LPF None Seen 08/28 [place] STOOL /LPF /2016 [place] URINE AND UA Spec Grav 1.018 <=1.030 08/28 [place] STOOL /2016 [place] URINE AND UA Bacteria Many /HPF None Seen 08/28 [place] STOOL /HPF /2016 [place] URINE AND UA 2.0 0.1 - 1.0 08/28 [place] STOOL Urobilinogen /2016 [place] URINE AND UA Bili Negative Negative 08/28 [place] STOOL *NA* /2016 [place] (08/27/16 8:09 PM) URINE AND UA Blood Moderate Negative 08/28 [place] STOOL *ABN* /2016 [facility] (08/27/16 8:09 PM) URINE AND UA Nitrite Negative Negative 08/28 [place] STOOL (08/27/16 8:09 PM) /2016 [place] URINE AND UA WBC 65 0 - 5 08/28 [place] STOOL /2016 [place] URINE AND UA Leuk Est Small Negative 08/28 [place] STOOL *ABN* /2016 [facility] (08/27/16 8:09 PM) URINE AND UA Sq Epi Occasional Few /LPF 08/28 [place] STOOL /LPF /2016 [place] URINE AND UA RBC 12 0 - 2 08/28 [place] STOOL /2016 [place] URINE AND UA Turbidity Slight Clear 08/28 [place] STOOL *ABN* /2016 [facility] (08/27/16 8:09 PM) URINE AND UA pH 5.0 5.0 - 8.0 08/28 [place] STOOL [place] URINE AND UA Color Yellow Yellow 08/28 [place] STOOL *NA* /2016 [facility] (08/27/16 8:09 PM) URINE AND UA Ketones 20 mg/dL Negative 08/28 [place] STOOL mg/dL /2016 [facility] URINE AND UA Protein Negative Negative 08/28 [place] STOOL mg/dL mg/dL [facility] URINE AND UA Glucose Negative Negative 08/28 [place] STOOL mg/dL mg/dL /2016 [facility] HEMATOLOGY Lymphocytes 14.1 20.0 - 02/11 [place] 40.0 [facility] HEMATOLOGY Segs 80.3 45.0 - 02/11 [place] 75.0 /2014 [facility] HEMATOLOGY Monocytes # 0.6 0.0 - 0.8 02/11 [facility] HEMATOLOGY Lymphocytes # 1.6 1.0 - 5.5 02/11 [facility] HEMATOLOGY Eosinophils 0.1 0.0 - 4.0 02/11 [facility] HEMATOLOGY Basophils 0.2 0.0 - 1.0 02/11 [facility] HEMATOLOGY Segs-Bands # 9.2 1.5 - 8.1 02/11 [facility] HEMATOLOGY Monocytes 5.3 2.0 - 12.0 02/11 [facility] HEMATOLOGY Hgb 9.7 12.0 - 02/11 [place] 16.0 [facility] HEMATOLOGY RBC 3.54 4.20 - 02/11 [place] 5.40 /2014 [facility] HEMATOLOGY Hct 30.2 36.0 - 02/11 [place] 48.0 /2014 [facility] HEMATOLOGY MCV 85.2 80.0 - 02/11 [place] 98.0 /2014 [facility] HEMATOLOGY WBC 11.4 3.7 - 10.4 02/11 [facility] HEMATOLOGY MCHC 32.2 32.0 - 12 [place] 36.0 [facility] HEMATOLOGY RDW 12.8 11.5 - 02/11 [place] 14.5 /2014 [facility] HEMATOLOGY MCH 27.5 27.0 - 02/11 [place] 31.0 [facility] HEMATOLOGY Platelet 120 133 - 450 02/11 [facility] HEMATOLOGY MPV 12.0 7.4 - 10.4 02/11 [facility] Center HEMATOLOGY Monocytes 1.8 2.0 - 12.0 02/10 [facility] HEMATOLOGY Segs 92.0 45.0 - 02/10 [place] 75.0 /2014 Medical [place] HEMATOLOGY Lymphocytes 5.9 20.0 - 02/10 [place] 40.0 /2014 [facility] HEMATOLOGY Monocytes # 0.2 0.0 - 0.8 02/10 [facility] HEMATOLOGY Basophils 0.1 0.0 - 1.0 02/10 [facility] HEMATOLOGY Lymphocytes # 0.8 1.0 - 5.5 02/10 [facility] HEMATOLOGY Eosinophils 0.2 0.0 - 4.0 02/10 [facility] HEMATOLOGY Segs-Bands # 12.0 1.5 - 8.1 02/10 [facility] HEMATOLOGY Platelet 117 133 - 450 02/10 [facility] HEMATOLOGY MPV 11.5 7.4 - 10.4 02/10 [facility] HEMATOLOGY MCHC 33.2 32.0 - 02/10 [place] 36.0 /2014 [facility] HEMATOLOGY RBC 4.06 4.20 - 02/10 [place] 5.40 /2014 [facility] HEMATOLOGY MCV 84.2 80.0 - 02/10 [place] 98.0 /2014 [facility] HEMATOLOGY MCH 27.9 27.0 - 12 [place] 31.0 [facility] HEMATOLOGY Hgb 11.4 12.0 - 02/10 [place] 16.0 /2014 [facility] HEMATOLOGY Hct 34.2 36.0 - 02/10 [place] 48.0 /2015 [facility] HEMATOLOGY WBC 13.1 3.7 - 10.4 02/10 [facility] HEMATOLOGY RDW 13.1 11.5 - 1220 [place] 14.5 [facility] BLOOD BANK ABO/Rh A POS 02/10 [facility] RESULTS /2014 [facility] BLOOD BANK Antibody Scrn Negative 02/10 [facility] RESULTS (02/10/15 7:06 AM) /2014 [facility] HEMATOLOGY Lymphocytes # 0.9 1.0 - 5.5 02/10 [facility] HEMATOLOGY Segs 89.4 45.0 - 02/10 [place] 75.0 /2014 [facility] HEMATOLOGY Segs-Bands # 16.0 1.5 - 8.1 02/10 [place] /2014 [facility] HEMATOLOGY Monocytes # 1.0 0.0 - 0.8 02/10 /2014 [facility] HEMATOLOGY Monocytes 5.4 2.0 - 12.0 02/10 [facility] HEMATOLOGY Eosinophils 0.1 0.0 - 4.0 02/10 [facility] HEMATOLOGY Lymphocytes 5.0 20.0 - 02/10 [place] 40.0 [facility] HEMATOLOGY Basophils 0.1 0.0 - 1.0 02/10 [facility] HEMATOLOGY MPV 11.6 7.4 - 10.4 02/10 /2014 [facility] HEMATOLOGY MCH 27.6 27.0 - 02/10 [place] 31.0 [facility] HEMATOLOGY MCHC 32.2 32.0 - 02/10 [place] 36.0 /2014 [facility] HEMATOLOGY RDW 13.1 11.5 - 02/10 [place] 14.5 /2014 [facility] HEMATOLOGY Hgb 12.2 12.0 - 02/10 [place] 16.0 [facility] HEMATOLOGY Platelet 129 133 - 450 02/10 [facility] HEMATOLOGY Hct 37.9 36.0 - 02/10 [place] 48.0 /2014 [facility] HEMATOLOGY MCV 85.8 80.0 - 02/10 [place] 98.0 /2014 [facility] HEMATOLOGY WBC 17.9 3.7 - 10.4 02/10 [facility] HEMATOLOGY RBC 4.42 4.20 - 02/10 [place] 5.40 /2014 [facility] HEMATOLOGY PTT 33.8 22.9 - 12 [place] 35.8 /2014 [facility] HEMATOLOGY INR 1.09 0.85 - 02/10 [place] 1.17 /2014 [facility] HEMATOLOGY PT 14.4 12.0 - 12/20 [facility] [place] 14.7 /2014 [facility] CHEM PANEL Calcium Lvl See Note 1 8.5 - 10.5 02/10 Result [facility] [place] (02/10/15 3:17 AM) /2014 Comment: [place] 1.22mmol/L;te st performed on iSTAT CHEM PANEL eGFR xxxxxxx 02/10 [facility] [place] (02/10/15 3:17 AM) [place] CHEM PANEL Creatinine 0.70 0.50 - 02/10 [facility] [place] Lvl 1.40 [place] CHEM PANEL Sodium Lvl 142 135 - 145 02/10 [place] CHEM PANEL CO2 See Note 1 24 - 32 02/10 Result [place] (02/10/15 3:17 AM) /2014 Comment: [place] 27mmol/L;test performed on iSTAT CHEM PANEL BUN 12 7 - 22 02/10 [place] CHEM PANEL Potassium Lvl 3.5 3.5 - 5.1 02/10 [place] CHEM PANEL Chloride Lvl 102 95 - 109 02/10 [place] CHEM PANEL Glucose Lvl 103 70 - 99 02/10 [place] HEMATOLOGY Large Plt Slight 02/10 [place] HEMATOLOGY Monocytes # 0.5 0.0 - 0.8 02/10 [place] HEMATOLOGY Basophils # 0.0 0.0 - 0.2 02/10 [place] HEMATOLOGY Lymphocytes # 2.1 1.0 - 5.5 02/10 [place] HEMATOLOGY Eosinophils # 0.1 0.0 - 0.5 02/10 [place] HEMATOLOGY Segs-Bands # 13.0 1.5 - 8.1 02/10 [place] HEMATOLOGY RBC Morph Normal 02/10 [facility] [place] (02/10/15 3:17 AM) [place] HEMATOLOGY Segs 83.2 45.0 - 02/10 MH [place] 75.0 /2015 [place] HEMATOLOGY Lymphocytes 13.1 20.0 - 02/10 MH [place] 40.0 /2015 [place] HEMATOLOGY Eosinophils 0.7 0.0 - 4.0 02/10 [place] HEMATOLOGY Monocytes 2.9 2.0 - 12.0 02/10 [facility] [place] HEMATOLOGY Basophils 0.1 0.0 - 1.0 02/10 [place] HEMATOLOGY Platelet 113 133 - 450 02/10 [place] HEMATOLOGY MCHC 33.0 32.0 - 02/10 [place] 36.0 /2014 [facility] HEMATOLOGY RDW 13.1 11.5 - 02/10 [place] 14.5 /2014 [facility] HEMATOLOGY MCV 85.8 80.0 - 02/10 [place] 98.0 /2014 [facility] HEMATOLOGY MPV 12.5 7.4 - 10.4 02/10 [place] /2014 [facility] HEMATOLOGY MCH 28.3 27.0 - 02/10 [place] 31.0 /2014 [facility] HEMATOLOGY WBC 15.6 3.7 - 10.4 02/10 [place] /2014 [facility] HEMATOLOGY Hct 40.8 36.0 - 02/10 [place] 48.0 /2014 [facility] HEMATOLOGY Hgb 13.5 12.0 - 02/10 [place] 16.0 /2014 [facility] HEMATOLOGY RBC 4.75 4.20 - 02/10 [place] 5.40 /2014 [facility] Microbiolog Culture: 02/24 [place] y Urine [facility] CHEMISTRY U Preg Negative Negative 02/23 Normal [place] (02/24/2012 17:25:00) [facility] URINALYSIS UA Bacteria Few /HPF None Seen 02/23 Normal [place] (02/24/2012 17:25:00) [facility] URINALYSIS UA Mucus Few /LPF None Seen 02/23 Normal [place] (02/24/2012 17:25:00) [facility] URINALYSIS UA WBC 11-20 /HPF None Seen 02/23 ABN [place] *ABN* /2012 [facility] (02/24/2012 17:25:00) URINALYSIS UA Sq Epi Rare /LPF Few 02/23 Normal [place] (02/24/2012 17:25:00) [facility] URINALYSIS UA RBC 3-5 /HPF 0 - 2 02/23 ABN [place] *ABN* /2012 [facility] (02/24/2012 17:25:00) Pathology Reports No Data Provided for This Section Diagnostic Reports Report Value Date Source ED Abdomen/Pelvis IV Clinical history: - Abdominal pain, fever. 08/27/2016 [facility] contrast only CT Sex: Female. : 2000. Technique: Axial scans through the abdomen and pelvis with intravenous contrast using 100 cc of Omnipaque 300 including multiplanar computer reformations. Total Dose Length Product: 823.'This exam was performed using radiation doses that are As Low As Reasonably Achievable ( ALARA).' Comparison studies: None. Findings: Liver: 17.8 cm. No mass. Spleen: The spleen is enlarged and measures 15 x 10 x 5.5 cm. Gallbladder: Borderline gallbladder distention 8 cm. Bile ducts: No biliary dilatation. Pancreas: normal. Adrenal glands: Normal. Kidneys: Normal. Bladder: Normal. Uterus: Anteverted. Uterine length: 7.4 cm. Adnexa: 2.5 cm right ovary cyst. Large and small bowel: Normal. No intestinal dilatation or obstruction. Perhaps there is a small amount of edema around the hepatic flexure versus incomplete distention. No small bowel dilatation. Small lymph nodes in the right lower quadrant Appendix: The appendix is not well seen, correlate clinically. Stomach and duodenum: Unremarkable. Aorta and iliac arteries: Normal. Retroperitoneum: No mass or adenopathy Free fluid: None. Lung bases: Clear. Musculature, abdominal wall and soft tissues: Normal Skeletal structures: Unremarkable. Impression: 1. Cannot exclude a small amount of colonic inflammation around the splenic flexure. 2. Splenomegaly. 3. Right ovarian cyst. Chest 1view DX Clinical history: - Undifferentiated Sepsis. 08/27/2016 [place] : 2000. Technique: Portable AP chest x-ray. Comparison: None. Heart size: Normal. Lungs: No acute consolidation. Pleura: No pleural effusion. No pneumothorax. Mediastinum and vignesh: Unremarkable. Musculoskeletal: Unremarkable. Support tubings: None. Impression: 1. No active disease in the chest. Consultation Notes No Data Provided for This Section Discharge Summaries No Data Provided for This Section History and Physicals No Data Provided for This Section Vital Signs Vital Sign Value Date Comments Source Heart Rate 93 08/28/2016 [place] Respitory Rate 20 08/28/2016 [place] Systolic (mm Hg) 134 08/28/2016 [place] Diastolic (mm Hg) 73 08/28/2016 [place] Temperature Oral (F) 98.7 F 08/28/2016 [place] Height 160.02 cm 08/28/2016 [place] Heart Rate 128 08/28/2016 [place] Respitory Rate 20 08/28/2016 [place] Systolic (mm Hg) 102 08/28/2016 [place] Diastolic (mm Hg) 67 08/28/2016 [place] BMI Calculated 35.69 08/28/2016 [place] Temperature Oral (F) 101.3 F 08/28/2016 [place] Weight 91.392 08/28/2016 [place] Systolic (mm Hg) 96 02/11/2015 [facility] Diastolic (mm Hg) 49 02/11/2015 [facility] Temperature Oral (F) 98.0 F 02/11/2015 [facility] Respitory Rate 20 02/11/2015 [facility] Heart Rate 87 02/11/2015 [facility] Systolic (mm Hg) 108 02/11/2015 [facility] Diastolic (mm Hg) 44 02/11/2015 [facility] Temperature Oral (F) 98.5 F 02/11/2015 [facility] Respitory Rate 18 02/11/2015 [facility] Temperature Oral (F) 98.0 F 02/11/2015 [facility] Respitory Rate 20 02/11/2015 [facility] Systolic (mm Hg) 100 02/11/2015 [facility] Diastolic (mm Hg) 47 02/11/2015 [facility] Heart Rate 105 2015 [facility] Height 177.8 cm 2015 [facility] BMI Calculated 27.9 2015 [facility] Weight 88.2 2015 [facility] Weight 86.364 2015 [facility] Height 177.8 cm 2015 [facility] Heart Rate 110 2015 [facility] BMI Calculated 27.32 2015 [facility] Temperature Oral (F) 98.1 F 2015 [place] Systolic (mm Hg) 120 2015 [place] Diastolic (mm Hg) 68 2015 [place] Respitory Rate 16 2015 [place] Heart Rate 69 2015 [place] Respitory Rate 18 2015 [place] Heart Rate 71 2015 [place] Temperature Oral (F) 98.4 F 2015 [place] Systolic (mm Hg) 112 2015 [place] Diastolic (mm Hg) 63 2015 [place] Weight 89.091 2015 [place] Weight 83.636 02/24/2012 [place] Encounters Location Location Encounter Encounter Reason Attending ADM DC Status Source Details Type Number For Provider Date Date Visit Emergency [id number] ABDOMIN LIAM 02/23 02/23 Active [place] [facility] AL/BACK ELIUD /2012 [facility] Emergency [id number] Anushka 02/10 02/10 [facility] Adelso /2014 [facility] OBS [id number] Jonathancak 02/10 02/11 [facility] Observation Evelynmarcos /2014 [facility] Emergency [id number] Mateo 08/28 08/28 [place] Joce Nathan /2016 [facility] [place] Procedures Procedure Code Date Perfomer Comments Source Tonsillectomy and [id number] 02/08/2015 [place] [facility] adenoidectomy<sup>1</ Hospital [place] sup> Tonsillectomy and [id number] 02/08/2015 [place] [facility] adenoidectomy<sup>1</ Hospital Medical sup> Center Manual reduction of [id number] [facility] intussusception [place] Manual reduction of [id number] [facility] intussusception [place] [facility] [id number] [facility] Assessment and Plan Assessment and Plan Date Source Extracted from:Title: Clinical Document 02/11/2015 [facility] Author: Juvenal Herring MD Date: 02/11/15 ENT Progress Note LUIS A no bleeding tolerating PO pain controlled post-surgical changes as expected in tonsillar fossa no bleeding visualized 02/11 0321 WBC 11.4 H RBC 3.54 L Hgb 9.7 L Hct 30.2 L MCV 85.2 MCH 27.5 MCHC 32.2 RDW 12.8 Platelet 120 L MPV 12.0 H Segs 80.3 H Monocytes 5.3 Lymphocytes 14.1 L Eosinophils 0.1 Basophils 0.2 Segs-Bands # 9.2 H Lymphocytes # 1.6 Monocytes # 0.6 plan d/c home today f/u with Dr. Maguire already has pain medication at home Juvenal Herring MD Resident, Department of Otorhinolaryngology - Head and Neck Surgery Adult ENT Pager: [phone] Pediatric ENT Pager: [phone] Plan of Care No Data Provided for This Section Social History Social History Date Source Social History TypeResponse 2015 [facility] Substance Abuse Use: None. Alcohol Never Smoking Status Never smoker; Exposure to Tobacco Smoke None; Cigarette Smoking Last 365 Days No; Reg Smoking Cessation Counseling No Social History TypeResponse 2015 [facility] Substance Abuse Use: None. Alcohol Never Smoking Status Never smoker; Lives with someone who smokes; Cigarette Smoking Last 365 Days No ; Reg Smoking Cessation Counseling No Family History No Data Provided for This Section Advance Directives No Data Provided for This Section Functional Status No Data Provided for This Section
--- OUTSIDE RECORDS SUMMARY | 2018-09-26 11:57 | XMS REPORT | Summary of Care ---
:2000 Author Organization [facility] Address [address], [place] [address]- Encounter HQ Barry_rei(FIN) [id number] Date(s): 02/10/15 - 02/11/[address] Professional Services provided by [facility] [place] [address]- Discharge Disposition: Home Attending Physician: Sherri Barnes MD Admitting Physician: Sherri Barnes MD Referring Physician: Anushka Darden MD Vital Signs Most recent to oldest 1 2 3 [Reference Range]: Height 177.8 cm 177.8 cm (02/10/15 6:14 AM) (02/10/15 6:04 AM) Temperature Oral [96.8-99.7 98.0 DegF 98.5 DegF 98.0 DegF DegF] (02/11/15 9:16 AM) (02/11/15 4:09 AM) (02/11/15 12:12 AM) Blood Pressure 96/49 mmHg 108/44 mmHg 100/47 mmHg [90-138/45-84 mmHg] (02/11/15 9:16 AM) (02/11/15 4:09 AM) (02/11/15 12:12 AM ) Respiratory Rate [14-20 20 BRMIN 18 BRMIN 20 BRMIN BRMIN] (02/11/15 9:16 AM) (02/11/15 4:09 AM) (02/11/15 12:12 AM) Peripheral Pulse Rate 87 bpm 105 bpm 110 bpm [55-90 bpm] (02/11/15 9:16 AM) *HI* *HI* (02/10/15 7:56 AM) (02/10/15 6:04 AM) Weight 88.2 kg 86.364 kg (02/10/15 6:14 AM) (02/10/15 6:04 AM) Body Mass Index 27.9 m2 27.32 m2 (02/10/15 6:14 AM) (02/10/15 6:04 AM) Problem List Condition Effective Dates Status Health Status Informant Enlarged tonsils(Confirmed) 2005 Resolved Allergies, Adverse Reactions, Alerts Substance Reaction Severity Status NKDA Active Medications acetaminophen-hydrocodone 325 mg-10 mg/15 mL oral solution 12 mL, Route: PO, Drug Form: SOLN, Dosing Weight 88.2, kg, Q6H, PRN Pain Score 4 -6, Start date: 02/10/15 8:54:00, Duration: 30 day, Stop date: 03/12/15 8:53:00 Notes: Do not exceed 4gm/day of acetaminophen. (Same as: Zolvit) Start Date: 02/10/15 Stop Date: 02/11/15 Status: DiscontinuedAfrin Severe Congestion 2 spray, Route: NASAL, Drug Form: SPRY, Dosing Weight 88.2, kg, ONCE, Start date : 02/10/15 6:57:00, Stop date: 02/10/15 6:57:00 Notes: (Same as: Afrin) Start Date: 02/10/15 Stop Date: 02/10/15 Status: Completedfamotidine 20 mg, Route: IV, ONCE, Dosing Weight 88.2, kg, Start date: 02/10/15 7:02:00, Stop date: 02/10/15 7:02:00 Start Date: 02/10/15 Stop Date: 02/10/15 Status: Completedhydromorphone 0.3528 mg, 0.18 mL, Route: IVP, Drug form: INJ, ONCE, Dosing Weight 88.2, kg, PRN Pain Score 4-6, Start date: 02/10/15 9:09:00, Duration: 24 hr, Stop date: 9:08:00 Notes: Same as: Dilaudid Start Date: 02/10/15 Stop Date: 02/11/15 Status: CompletedIsolyte S PH-7.4 (Bolus) IV 1,000 mL, Route: IV, Dosing Weight 88.2, kg, ONCE, Start date: 02/10/15 6:53:00 , Stop date: 156:53:00 Start Date: 02/10/15 Stop Date: 02/10/15 Status: CompletedSodium Chloride 0.9% (Bolus) IV 1,000 mL, 1,000 ml/hr, Infuse Over: 1 hr, Route: IV, ONCE, Priority: STAT, Dosing Weight 88.2 kg, Start date: 02/10/15 7:01:00, Duration: 1 doses or times , Stop date: 02/10/15 7:01:00 Start Date: 02/10/15 Stop Date: 02/10/15 Status: CompletedZofran 4 mg, Route: IVP, Drug form: INJ, ONCE, Dosing Weight 88.2, kg, Priority: STAT, Start date: 157:02:00, Stop date: 02/10/15 7:02:00 Start Date: 02/10/15 Stop Date: 02/10/15 Status: Completed Results BLOOD BANK RESULTS Most recent to oldest [Reference Range]: 1 2 3 ABO/Rh A POS *Unknown* (02/10/15 7:06 AM) Antibody Scrn Negative (02/10/15 7:06 AM) HEMATOLOGY Most recent to oldest 1 2 3 [Reference Range]: WBC [3.7-10.4 K/CMM] 11.4 K/CMM 13.1 K/CMM 17.9 K/CMM *HI* *HI* *HI* (02/11/15 3:21 AM) (02/10/15 3:21 PM) (02/10/15 7:06 AM) RBC [4.20-5.40 M/CMM] 3.54 M/CMM 4.06 M/CMM 4.42 M/CMM *LOW* *LOW* (02/10/15 7:06 AM) (02/11/15 3:21 AM) (02/10/15 3:21 PM) Hgb [12.0-16.0 g/dL] 9.7 g/dL 11.4 g/dL 12.2 g/dL *LOW* *LOW* (02/10/15 7:06 AM) (02/11/15 3:21 AM) (02/10/15 3:21 PM) Hct [36.0-48.0 %] 30.2 % 34.2 % 37.9 % *LOW* *LOW* (02/10/15 7:06 AM) (02/11/15 3:21 AM) (02/10/15 3:21 PM) MCV [80.0-98.0 fL] 85.2 fL 84.2 fL 85.8 fL (02/11/15 3:21 AM) (02/10/15 3:21 PM) (02/10/15 7:06 AM) MCH [27.0-31.0 pg] 27.5 pg 27.9 pg 27.6 pg (02/11/15 3:21 AM) (02/10/15 3:21 PM) (02/10/15 7:06 AM) MCHC [32.0-36.0 g/dL] 32.2 g/dL 33.2 g/dL 32.2 g/dL (02/11/15 3:21 AM) (02/10/15 3:21 PM) (02/10/15 7:06 AM) RDW [11.5-14.5 %] 12.8 % 13.1 % 13.1 % (02/11/15 3:21 AM) (02/10/15 3:21 PM) (02/10/15 7:06 AM) Platelet [133-450 K/CMM] 120 K/CMM 117 K/CMM 129 K/CMM *LOW* *LOW* *LOW* (02/11/15 3:21 AM) (02/10/15 3:21 PM) (02/10/15 7:06 AM) MPV [7.4-10.4 fL] 12.0 fL 11.5 fL 11.6 fL *HI* *HI* *HI* (02/11/15 3:21 AM) (02/10/15 3:21 PM) (02/10/15 7:06 AM) Segs [45.0-75.0 %] 80.3 % 92.0 % 89.4 % *HI* *HI* *HI* (02/11/15 3:21 AM) (02/10/15 3:21 PM) (02/10/15 7:06 AM) Lymphocytes [20.0-40.0 %] 14.1 % 5.9 % 5.0 % *LOW* *LOW* *LOW* (02/11/15 3:21 AM) (02/10/15 3:21 PM) (02/10/15 7:06 AM) Monocytes [2.0-12.0 %] 5.3 % 1.8 % 5.4 % (02/11/15 3:21 AM) *LOW* (02/10/15 7:06 AM) (02/10/15 3:21 PM) Eosinophils [0.0-4.0 %] 0.1 % 0.2 % 0.1 % (02/11/15 3:21 AM) (02/10/15 3:21 PM) (02/10/15 7:06 AM) Basophils [0.0-1.0 %] 0.2 % 0.1 % 0.1 % (02/11/15 3:21 AM) (02/10/15 3:21 PM) (02/10/15 7:06 AM) Segs-Bands # [1.5-8.1 9.2 K/CMM 12.0 K/CMM 16.0 K/CMM K/CMM] *HI* *HI* *HI* (02/11/15 3:21 AM) (02/10/15 3:21 PM) (02/10/15 7:06 AM) Lymphocytes # [1.0-5.5 1.6 K/CMM 0.8 K/CMM 0.9 K/CMM K/CMM] (02/11/15 3:21 AM) *LOW* *LOW* (02/10/15 3:21 PM) (02/10/15 7:06 AM) Monocytes # [0.0-0.8 K/CMM] 0.6 K/CMM 0.2 K/CMM 1.0 K/CMM (02/11/15 3:21 AM) (02/10/15 3:21 PM) *HI* (02/10/15 7:06 AM) PT [12.0-14.7 seconds] 14.4 seconds (02/10/15 7:06 AM) INR [0.85-1.17] 1.09 (02/10/15 7:06 AM) PTT [22.9-35.8 seconds] 33.8 seconds (02/10/15 7:06 AM) Immunizations No data available for this section Procedures Procedure Date Related Diagnosis Body Site Tonsillectomy and adenoidectomy1 02/08/15 [facility] Social History Social History Type Response Substance Abuse Use: None. Alcohol Never Smoking Status Never smoker; Lives with someone who smokes; Cigarette Smoking Last 365 Days No; Reg Smoking Cessation Counseling No Assessment and Plan Extracted from: Title: Clinical Document Author: Juvenal Herring MD Date: 02/11/15 ENT [...] Head and Neck Surgery Adult ENT Pager: [phone] Pediatric ENT Pager: [phone]
--- OUTSIDE RECORDS SUMMARY | 2018-09-26 11:57 | XMS REPORT | Summary of Care ---
:2000 Author Organization [facility] Address [address] [place], [place] [address]- Encounter HQ Barry_rei([facility]) [id number] Date(s): 08/27/16 - 08/27/16 [facility] [address] [place] [address]- Discharge Diagnosis: Pyelonephritis Discharge Disposition: Home or Self Care Attending Physician: Mateo Evans MD Vital Signs Most recent to oldest [Reference Range]: 1 2 Height 160.02 cm (08/27/16 7:11 PM) Temperature Oral [96.4-99.1 DegF] 98.7 DegF 101.3 DegF (08/27/16 9:18 PM) *HI* (08/27/16 7:11 PM) Blood Pressure [90-140/60-90 mmHg] 134/73 mmHg 102/67 mmHg (08/27/16 9:18 PM) (08/27/16 7:11 PM) Respiratory Rate [14-20 BRMIN] 20 BRMIN 20 BRMIN (08/27/16 9:18 PM) (08/27/16 7:11 PM) Peripheral Pulse Rate [60-100 bpm] 93 bpm 128 bpm (08/27/16 9:18 PM) *HI* (08/27/16 7:11 PM) Weight 91.392 kg (08/27/16 7:11 PM) Body Mass Index 35.69 m2 (08/27/16 7:11 PM) Problem List Condition Effective Dates Status Health Status Informant Enlarged tonsils(Confirmed) 2005 Resolved Allergies, Adverse Reactions, Alerts Substance Reaction Severity Status NKDA Active Medications acetaminophen 975 mg, Route: PO, Drug form: TAB, ONCE, Dosing Weight 91.392, kg, Start date: 08/27/16 19:59:00 CDT, Stop date: 08/27/16 19:59:00 CDT Start Date: 08/27/16 Stop Date: 08/27/16 Status: CompletedcefTRIAXone 1 gm, Route: IVPB, Drug form: PDR/INJ, ONCE, Dosing Weight 91.392, kg, Priority : STAT, Start date: 08/27/16 19:59:00 CDT, Duration: 1 doses or times, Stop date : 08/27/16 19:59:00 CDT, ABX Indication: Urinary Tract Infection Start Date: 08/27/16 Stop Date: 08/27/16 Status: CompletedKeflex 750 mg oral capsule 750 mg=1 cap, PO, Q8H, may substitute 250 mg tabs/capsules if needed, X 10 day, # 30 cap, 0 Refill(s) Start Date: 08/27/16 Stop Date: 09/06/16 Status: Orderedmorphine Sulfate 4 mg, Route: IVP, ONCE, Dosing Weight 91.392, kg, Priority: STAT, Start date: 19:59:00 CDT,Stop date: 08/27/16 19:59:00 CDT Start Date: 08/27/16 Stop Date: 08/27/16 Status: Completedondansetron 4 mg, Route: IVP, ONCE, Dosing Weight 91.392, kg, Priority: STAT, Start date: 19:59:00 CDT,Stop date: 08/27/16 19:59:00 CDT Start Date: 08/27/16 Stop Date: 08/27/16 Status: CompletedSaline Flush 0.9% 10 mL, Route: IVP, Drug Form: INJ, Dosing Weight 91.392, kg, PRN, PRN Line Flush , Start date: 08/27/16 19:59:00 CDT, Duration: 30 day, Stop date: 09/26/16 19:58 :00 CDT Notes: (Same as: BD Posiflush) Start Date: 08/27/16 Stop Date: 08/27/16 Status: DiscontinuedSodium Chloride 0.9% IV (Sodium Chloride 0.9% (Bolus) IV) 1,000 mL, 2,000 ml/hr, Route: IV, ONCE, Priority: STAT, Dosing Weight 91.392 kg , Start date: 08/27/16 19:59:00 CDT, Duration: 1 doses or times, Stop date: 08/08 19:59:00 CDT Start Date: 08/27/16 Stop Date: 08/27/16 Status: CompletedTylenol 325 mg oral capsule 650 mg=2 cap, PO, Q4H, PRN fever, X 5 day, # 60 cap, 0 Refill(s) Start Date: 08/27/16 Stop Date: 09/01/16 Status: OrderedZofran ODT 4 mg oral tablet, disintegrating 4 mg=1 tab, PO, TID, PRN Nausea and Vomiting, X 4 day, # 10 tab, 0 Refill(s) Start Date: 08/27/16 Stop Date: 08/31/16 Status: Ordered Results ELECTROLYTES Most recent to oldest [Reference Range]: 1 Sodium Lvl [135-145 mEq/L] 136 mEq/L (08/27/16 8:09 PM) Potassium Lvl [3.5-5.1 mEq/L] 3.5 mEq/L (08/27/16 8:09 PM) Chloride Lvl [95-109 mEq/L] 102 mEq/L (08/27/16 8:09 PM) CO2 [24-32 mEq/L] 24 mEq/L (08/27/16 8:09 PM) AGAP [10.0-20.0 mEq/L] 13.5 mEq/L (08/27/16 8:09 PM) CHEM PANEL Most recent to oldest [Reference Range]: 1 Creatinine Lvl [0.50-1.40 mg/dL] 0.70 mg/dL (08/27/16 8:09 PM) eGFR 127 mL/min/1.73m2 1 *NA* (08/27/16 8:09 PM) BUN [7-22 mg/dL] 9 mg/dL (08/27/16 8:09 PM) B/C Ratio [6-25] 13 (08/27/16 8:09 PM) Glucose Lvl [70-99 mg/dL] 96 mg/dL (08/27/16 8:09 PM) Total Protein [6.4-8.4 g/dL] 7.6 g/dL (08/27/16 8:09 PM) Albumin Lvl [3.5-5.0 g/dL] 3.5 g/dL (08/27/16 8:09 PM) Globulin [2.7-4.2 g/dL] 4.1 g/dL (08/27/16 8:09 PM) A/G Ratio [0.7-1.6] 0.9 (08/27/16 8:09 PM) Calcium Lvl [8.5-10.5 mg/dL] 8.2 mg/dL *LOW* (08/27/16 8:09 PM) ALT [0-65 unit/L] 47 unit/L (08/27/16 8:09 PM) AST [0-37 unit/L] 33 unit/L (08/27/16 8:09 PM) Alk Phos [39-136 unit/L] 56 unit/L (08/27/16 8:09 PM) Bili Total [0.2-1.3 mg/dL] 1.1 mg/dL (08/27/16 8:09 PM) Lactic Acid Lvl [0.5-2.2 mMol/L] 0.7 mMol/L (08/27/16 8:09 PM) Procalcitonin Lvl [0.00-0.10 ng/mL] 0.10 ng/mL (08/27/16 8:09 PM) 1Result Comment: The eGFR is calculated using the CKD-EPI formula. In most young , healthy individualsthe eGFR will be >90 mL/min/1.73m2. The eGFR declines with age. An eGFR of 60-89 may be normal in some populations, particularly the elderly, for whom the CKD-EPI formula has not been extensively validated. Use of the eGFR is not recommended in the following populations: Individuals with unstable creatinine concentrations, including patients and those with serious co-morbid conditions. Patients with extremes in muscle mass or diet. The data above are obtained from the National Kidney Disease Education Program ( NKDEP) which additionally recommends that when the eGFR is used in patients with extremes of body mass index for purposesof drug dosing, the eGFR should be multiplied by the estimated BMI.ENDOCRINOLOGY Most recent to oldest [Reference Range]: 1 S Preg [Negative] Negative *NA* (08/27/16 8:09 PM) URINE AND STOOL Most recent to oldest [Reference Range]: 1 UA Turbidity [Clear] Slight *ABN* (08/27/16 8:09 PM) UA Color [Yellow] Yellow *NA* (08/27/16 8:09 PM) UA pH [5.0-8.0] 5.0 (08/27/16 8:09 PM) UA Spec Grav [<=1.030] 1.018 (08/27/16 8:09 PM) UA Glucose [Negative mg/dL] Negative mg/dL *NA* (08/27/16 8:09 PM) UA Blood [Negative] Moderate *ABN* (08/27/16 8:09 PM) UA Ketones [Negative mg/dL] 20 mg/dL *ABN* (08/27/16 8:09 PM) UA Protein [Negative mg/dL] Negative mg/dL (08/27/16 8:09 PM) UA Urobilinogen [0.1-1.0 mg/dL] 2.0 mg/dL *HI* (08/27/16 8:09 PM) UA Bili [Negative] Negative *NA* (08/27/16 8:09 PM) UA Leuk Est [Negative] Small *ABN* (08/27/16 8:09 PM) UA Nitrite [Negative] Negative (08/27/16 8:09 PM) UA WBC [0-5 /HPF] 65 /HPF *HI* (08/27/16 8:09 PM) UA RBC [0-2 /HPF] 12 /HPF *HI* (08/27/16 8:09 PM) UA Bacteria [None Seen /HPF] Many /HPF *ABN* (08/27/16 8:09 PM) UA Sq Epi [Few /LPF] Occasional /LPF *NA* (08/27/16 8:09 PM) UA Mucus [None Seen /LPF] Few /LPF *NA* (08/27/16 8:09 PM) HEMATOLOGY Most recent to oldest [Reference Range]: 1 WBC [3.7-10.4 K/CMM] 10.8 K/CMM *HI* (08/27/16 8:09 PM) RBC [4.20-5.40 M/CMM] 4.72 M/CMM (08/27/16 8:09 PM) Hgb [12.0-16.0 g/dL] 13.1 g/dL (08/27/16 8:09 PM) Hct [36.0-48.0 %] 39.2 % (08/27/16 8:09 PM) MCV [80.0-98.0 fL] 83.1 fL (08/27/16 8:09 PM) MCH [27.0-31.0 pg] 27.7 pg (08/27/16 8:09 PM) MCHC [32.0-36.0 g/dL] 33.3 g/dL (08/27/16 8:09 PM) RDW [11.5-14.5 %] 15.3 % *HI* (08/27/16 8:09 PM) Platelet [133-450 K/CMM] 69 K/CMM *LOW* (08/27/16 8:09 PM) MPV [7.4-10.4 fL] 10.9 fL *HI* (08/27/16 8:09 PM) Segs [45.0-75.0 %] 83.3 % *HI* (08/27/16 8:09 PM) Lymphocytes [20.0-40.0 %] 9.8 % *LOW* (08/27/16 8:09 PM) Monocytes [2.0-12.0 %] 6.4 % (08/27/16 8:09 PM) Eosinophils [0.0-4.0 %] 0.3 % (08/27/16 8:09 PM) Basophils [0.0-1.0 %] 0.2 % (08/27/16 8:09 PM) Segs-Bands # [1.5-8.1 K/CMM] 9.0 K/CMM *HI* (08/27/16 8:09 PM) Lymphocytes # [1.0-5.5 K/CMM] 1.1 K/CMM (08/27/16 8:09 PM) Monocytes # [0.0-0.8 K/CMM] 0.7 K/CMM (08/27/16 8:09 PM) Eosinophils # [0.0-0.5 K/CMM] 0.0 K/CMM (08/27/16 8:09 PM) Basophils # [0.0-0.2 K/CMM] 0.0 K/CMM (08/27/16 8:09 PM) Immunizations No data available for this section Procedures Procedure Date Related Diagnosis Body Site Tonsillectomy and adenoidectomy1 02/08/15 [facility] Social History Social History Type Response Substance Abuse Use: None. Alcohol Never Smoking Status Never smoker; Exposure to Tobacco Smoke None; Cigarette Smoking Last 365 Days No; Reg Smoking Cessation Counseling No Assessment and Plan No data available for this section
--- OUTSIDE RECORDS SUMMARY | 2018-09-26 11:57 | XMS REPORT | CCD ---
:2000 Author Organization [facility] Team Providers Name Role Phone Eliud Sanjuana A Consulting Provider Allergies, Adverse Reactions, Alerts Substance Reaction Status NKDA Active Medications Medication Instructions Start Date End Date Status Motrin 600 mg oral tablet 600 mg, 1 tab, PO, Q8H, PRN, take with food, 30 tab , Pain, Substitution Allowed 02/24/2012 Ordered take with food [place] 5/325 oral tablet 1 tab, Route: PO, Dosing 02/24/2012 02/24/2012 Completed Weight 83.636, kg, ONCE, STAT, Start date: 02/24/12 17:41:00, Stop date: 02/24/12 17:41:00 Vital Signs Most recent to oldest [Reference Range]: 1 Weight 83.636 kg (02/24/2012 17:03:00) Results URINALYSIS Most recent to oldest [Reference Range]: 1 UA WBC [None Seen /HPF] 11-20 /HPF *ABN* (02/24/2012 17:25:00) UA RBC [0-2 /HPF] 3-5 /HPF *ABN* (02/24/2012 17:25:00) UA Bacteria [None Seen /HPF] Few /HPF (02/24/2012 17:25:00) UA Sq Epi [Few /LPF] Rare /LPF (02/24/2012 17:25:00) UA Mucus [None Seen /LPF] Few /LPF (02/24/2012 17:25:00) CHEMISTRY Most recent to oldest [Reference Range]: 1 U Preg [Negative] Negative (02/24/2012 17:25:00) Microbiology Reports PROCEDURE:Culture: Urine STATUS: In Progress BODY SITE: COLLECTED DATE/TIME: 02/24/2012 18:05:00 SOURCE: Urine, Clean Catch FREE TEXT SOURCE: PRELIMINARY REPORTS Preliminary [id number],000 - 100,000 CFU/mL Gram Negative Rods, Non-Lactose Fermenters Subculture In Progress Procedures Procedures Date Related Diagnosis Manual reduction of intussusception
--- OUTSIDE RECORDS SUMMARY | 2018-09-26 11:57 | XMS REPORT | Summary of Care ---
:2000 Author Organization [facility] Address [address], [place] [address]- Encounter HQ Jean-Pierre(FRANCES) [id number] Date(s): 02/10/15 - 02/10/15 [facility] [address] [place] [address]- Discharge Disposition: Acute Care Attending Physician: Anushka Darden MD Vital Signs Most recent to oldest [Reference Range]: 1 2 Temperature Oral [96.8-99.7 DegF] 98.1 DegF 98.4 DegF (02/10/15 5:17 AM) (02/10/15 2:22 AM) Blood Pressure [90-138/45-84 mmHg] 120/68 mmHg 112/63 mmHg (02/10/15 5:17 AM) (02/10/15 2:22 AM) Respiratory Rate [14-20 BRMIN] 16 BRMIN 18 BRMIN (02/10/15 5:17 AM) (02/10/15 2:22 AM) Peripheral Pulse Rate [55-90 bpm] 69 bpm 71 bpm (02/10/15 5:17 AM) (02/10/15 2:22 AM) Weight 89.091 kg (02/10/15 2:22 AM) Problem List Condition Effective Dates Status Health Status Informant Enlarged tonsils(Confirmed) 2005 Resolved Allergies, Adverse Reactions, Alerts Substance Reaction Severity Status NKDA Active Medications morphine Sulfate 2 mg, Route: IVP, Drug form: INJ, ONCE, Dosing Weight 89.091, kg, Priority: STAT , Start date: 02/10/15 4:37:00, Stop date: 02/10/15 4:37:00 Start Date: 02/10/15 Stop Date: 02/10/15 Status: CompletedNS + KCL 20mEq/L 1000ml (Premix) 1,000 mL 1,000 mL, Rate: 100 ml/hr, Infuse over: 10 hr, Route: IV, Dosing Weight 89.091 kg, Total Volume: 1,000, Start date: 02/10/15 3:33:00, Duration: 30 day, Stop date: 03/12/15 3:32:00 Notes: PREMIX IV - Do Not Alter Start Date: 02/10/15 Stop Date: 02/10/15 Status: DiscontinuedZofran ODT 4 mg, Route: PO, Drug form: TABDIS, ONCE, Dosing Weight 89.091, kg, Priority: STAT, Start date: 02/10/15 4:37:00, Stop date: 02/10/15 4:37:00 Start Date: 02/10/15 Stop Date: 02/10/15 Status: Completed Results ELECTROLYTES Most recent to oldest [Reference Range]: 1 Sodium Lvl [135-145 mEq/L] 142 mEq/L (02/10/15 3:17 AM) Potassium Lvl [3.5-5.1 mEq/L] 3.5 mEq/L (02/10/15 3:17 AM) Chloride Lvl [95-109 mEq/L] 102 mEq/L (02/10/15 3:17 AM) CO2 [24-32] See Note 1 (02/10/15 3:17 AM) 1Result Comment: 27mmol/L;test performed on iSTATCHEM PANEL Most recent to oldest [Reference Range]: 1 Creatinine Lvl [0.50-1.40 mg/dL] 0.70 mg/dL (02/10/15 3:17 AM) eGFR xxxxxxx (02/10/15 3:17 AM) BUN [7-22 mg/dL] 12 mg/dL (02/10/15 3:17 AM) Glucose Lvl [70-99 mg/dL] 103 mg/dL *HI* (02/10/15 3:17 AM) Calcium Lvl [8.5-10.5] See Note 1 (02/10/15 3:17 AM) 1Result Comment: 1.22mmol/L;test performed on iSTATHEMATOLOGY Most recent to oldest [Reference Range]: 1 WBC [3.7-10.4 K/CMM] 15.6 K/CMM *HI* (02/10/15 3:17 AM) RBC [4.20-5.40 M/CMM] 4.75 M/CMM (02/10/15 3:17 AM) Hgb [12.0-16.0 g/dL] 13.5 g/dL (02/10/15 3:17 AM) Hct [36.0-48.0 %] 40.8 % (02/10/15 3:17 AM) MCV [80.0-98.0 fL] 85.8 fL (02/10/15 3:17 AM) MCH [27.0-31.0 pg] 28.3 pg (02/10/15 3:17 AM) MCHC [32.0-36.0 g/dL] 33.0 g/dL (02/10/15 3:17 AM) RDW [11.5-14.5 %] 13.1 % (02/10/15 3:17 AM) Platelet [133-450 K/CMM] 113 K/CMM *LOW* (02/10/15 3:17 AM) MPV [7.4-10.4 fL] 12.5 fL *HI* (02/10/15 3:17 AM) Segs [45.0-75.0 %] 83.2 % *HI* (02/10/15 3:17 AM) Lymphocytes [20.0-40.0 %] 13.1 % *LOW* (02/10/15 3:17 AM) Monocytes [2.0-12.0 %] 2.9 % (02/10/15 3:17 AM) Eosinophils [0.0-4.0 %] 0.7 % (02/10/15 3:17 AM) Basophils [0.0-1.0 %] 0.1 % (02/10/15 3:17 AM) Segs-Bands # [1.5-8.1 K/CMM] 13.0 K/CMM *HI* (02/10/15 3:17 AM) Lymphocytes # [1.0-5.5 K/CMM] 2.1 K/CMM (02/10/15 3:17 AM) Monocytes # [0.0-0.8 K/CMM] 0.5 K/CMM (02/10/15 3:17 AM) Eosinophils # [0.0-0.5 K/CMM] 0.1 K/CMM (02/10/15 3:17 AM) Basophils # [0.0-0.2 K/CMM] 0.0 K/CMM (02/10/15 3:17 AM) RBC Morph Normal (02/10/15 3:17 AM) Large Plt Slight *NA* (02/10/15 3:17 AM) Immunizations No data available for this section Procedures Procedure Date Related Diagnosis Body Site Tonsillectomy and adenoidectomy1 02/08/15 [facility] Social History Type Response Substance Abuse Use: None. Alcohol Never Smoking Status Never smoker; Lives with someone who smokes; Cigarette Smoking Last 365 Days No; Reg Smoking Cessation Counseling No Assessment and Plan No data available for this section
--- NOTE | 2018-09-26 13:00 | ER ---
Nurse's Notes [facility] Name: Ivette Brown Age: 18 yrs Sex: Female : 2000 Arrival Date: 09/26/2018 Time: 11:54 Bed 23 Private MD: Bubba Noble R Diagnosis: acute upper abdominal pain Presentation: 09/26 12:09 Presenting complaint: Sharp upper abdominal pain x 20 mins. Pt reports she is approx 14 hb weeks , sees Dr. Roberts. LMP 06/10, ALEXANDER 03/26/19. Denies N/V/D/fever. Transition of care: patient was not received from another setting of care. Onset of symptoms was September 26, 2018. Risk Assessment: Do you want to hurt yourself or someone else? Patient reports no desire to harm self or others. Initial Sepsis Screen: Does the patient meet any 2 criteria? No. Patient's initial sepsis screen is negative. Does the patient have a suspected source of infection? No. Patient's initial sepsis screen is negative. Care prior to arrival: None. 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 - Social history:: Smoking status: Patient/guardian denies using tobacco. - Ebola Screening: : No symptoms or risks identified at this time. - Family history:: not pertinent. - Hospitalizations: : No recent hospitalization is reported. Screenin:28 Abuse screen: Denies threats or abuse. Denies injuries from another. Nutritional aj1 screening: No deficits noted. Tuberculosis screening: No symptoms or risk factors identified. Assessment: 12:58 Reassessment: Pulled patient to room 23, upon arrival patient states that she didn't aj1 realize that she would have to wait to be seen, but now her OB office is back from lunch so she is going to go there instead. 13:03 Reassessment: Patient came back to desk and stated that she called her doctors office aj1 and he is not able to see her today so now she would like to be seen again. 13:28 General: Appears in no apparent distress. comfortable, Behavior is calm, cooperative, aj1 appropriate for age. Pain: Complains of pain in umbilical area Pain does not radiate. Pain currently is 5 out of 10 on a pain scale. Neuro: Level of Consciousness is awake, alert, obeys commands, Oriented to person, place, time, situation. Cardiovascular: Patient's skin is warm and dry. Respiratory: Airway is patent Respiratory effort is even, unlabored, Respiratory pattern is regular, symmetrical. GI: Abdomen is non-distended, Bowel sounds present X 4 quads. Abd is soft and non tender X 4 quads. Reports nausea, Patient currently denies diarrhea, vomiting. : Denies vaginal bleeding. EENT: No signs and/or symptoms were reported regarding the EENT system. Derm: No signs and/or symptoms reported regarding the dermatologic system. Skin is pink, warm \T\ dry. normal. Musculoskeletal: No signs and/or symptoms reported regarding the musculoskeletal system. Circulation, motion, and sensation intact. Vital Signs: 12:10 BP 148 / 95; Pulse 108; Resp 16; Temp 98; Pulse Ox 98% ; Weight 83.91 kg; Height 5 ft. hb 3 in. (160.02 cm); Pain 10/10; 14:35 BP 99 / 61; Pulse 82; Resp 17; Pulse Ox 99% on R/A; rv 15:56 BP 109 / 95; Pulse 81; Resp 18; Pulse Ox 100% on R/A; mg2 16:45 BP 108 / 87; Pulse 84; Resp 18; Temp 98; Pulse Ox 99% on R/A; rv 12:10 Body Mass Index 32.77 (83.91 kg, 160.02 cm) hb Vitals: 14:34 Heart Tones 140 FHT. mg2 ED Course: 11:54 Patient arrived in ED. mr 11:54 Bubba Noble MD is Private Physician. mr 12:10 Triage completed. hb 12:10 Arm band placed on. hb 13:06 Katie Kline RN is Primary Nurse. aj1 13:27 Amos Moran MD is Attending Physician. wa 13:28 Patient has correct armband on for positive identification. Bed in low position. Call aj1 light in reach. Pulse ox on. NIBP on. 13:32 No provider procedures requiring assistance completed. aj1 14:58 Initial lab(s) drawn, by me, sent to lab. Inserted saline lock: 20 gauge in right ms antecubital area, using aseptic technique. Blood collected. 15:16 US Abdomen Limited In Process Unspecified. EDMS 16:46 IV discontinued, intact, bleeding controlled, No redness/swelling at site. Pressure rv dressing applied. Administered Medications: 15:00 Drug: NS 0.9% 1000 ml Route: IV; Rate: 1 bolus; Site: right antecubital; rv 16:44 Follow up: IV Status: Completed infusion rv 16:11 Drug: Pepcid 20 mg Route: IVP; Site: right antecubital; rv 16:44 Follow up: Response: No adverse reaction rv 16:30 Drug: Tylenol 1000 mg Route: PO; rv 16:45 Follow up: Response: No adverse reaction rv Outcome: 12:59 Eloped from patient exam room, before seeing physician aj 13:00 Patient left the ED. aj1 13:02 Patient left the ED. aj1 16:32 Discharge ordered by . wa 16:45 Discharged to home ambulatory, with family. rv 16:45 Condition: good 16:45 Discharge instructions given to patient, family, Instructed on discharge instructions, follow up and referral plans. medication usage, Demonstrated understanding of instructions, follow-up care, medications, Prescriptions given X 1. 16:46 Patient left the ED. rv Signatures: Dispatcher [employer] [facility] Katie Kline RN RN [facility] Juanita Marks Christie Goode Jessica Martinez RN RN Amos Moran MD MD wa Gardose, Michele, RN RN [facility] Rigo Matute RN RN rv
[2018-09-26 13:55] LABS: Urine Blood NEGATIVE (NEG); Urine Glucose NEGATIVE (NEG); Urine Protein NEGATIVE (NEG); Urine Specific Gravity 1.025 (1.005-1.030)
[2018-09-26] MEDS ORDERED: NA CHLORIDE 0.9% 1,000 ML ONE (14:57)
[2018-09-26 15:10] LABS: Absolute Lymphocytes (CBC) 1.6 K/uL (0.7-4.9); Basophils % 0.4 % (0-1.3); Hematocrit 41.4 % (36.0-45.0); Lymphocytes % 18.5 % (15.3-44.8); MPV 11.5 fL (7.6-11.3); RBC Red Blood Cell Count 4.86 M/uL (3.86-4.86)
[2018-09-26 15:26] LABS: ALT/SGPT 40 U/L (12-78); AST/SGOT 24 U/L (15-37); Albumin 3.7 g/dL (3.4-5.0); Alkaline Phosphatase 45 U/L (45-117); BUN Blood Urea Nitrogen 8 mg/dL (7-18); Bicarbonate 25 mmol/L (21-32); Bilirubin Direct 0.2 mg/dL (0-0.2); Bilirubin Total 0.5 mg/dL (0.2-1.0); Glucose Level 73 mg/dL (74-106); Lipase 61 U/L (73-393); Potassium 3.6 mmol/L (3.5-5.1); Protein, Total 7.6 g/dL (6.4-8.2); Sodium Level 141 mmol/L (136-145)
--- NOTE | 2018-09-26 15:48 | RAD REPORT ---
EXAM DESCRIPTION: US - Abdomen Exam Limited - 09/26/2018 3:15 pm CLINICAL HISTORY: Abdominal pain. COMPARISON: March 2018 FINDINGS: The gallbladder wall is not thickened. A gallstone is not seen. The biliary tree is normal caliber. Liver has an increased echotexture likely indicating fatty infilt ration IMPRESSION: Unremarkable gallbladder ultrasound.
[2018-09-26] MEDS ORDERED: FAMOTIDINE 20 MG/2 ML VIAL IV ONE (16:09)
[2018-09-26] MEDS ORDERED: ACETAMINOPHEN 500 MG TAB ONE (16:32)
--- NOTE | 2018-09-26 16:34 | EDPHYS ---
Physician Documentation [facility] Name: Ivette Brown Age: 18 yrs Sex: Female : 2000 Arrival Date: 09/26/2018 Time: 11:54 Bed 23 Private MD: Bubba Noble R ED Physician Amos Moran HPI: 09/26 18:28 This 18 yrs old Female presents to ER via Ambulatory with complaints of 14 wks wa , Abdominal Pain. 18:28 The patient presents with abdominal pain in the epigastric area, in the upper abdomen. wa Onset: The symptoms/episode began/occurred just prior to arrival. The symptoms do not radiate. Associated signs and symptoms: none. The symptoms are described as achy. Modifying factors: The symptoms are alleviated by nothing, the symptoms are aggravated by nothing. Severity of pain: At its worst the pain was moderate in the emergency department the pain has improved markedly. The patient has not experienced similar symptoms in the past. The patient has not recently seen a physician. 14 weeks preg. upper abd pain 20 min after a meal. no vomiting. mild nausea. 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 - Social history:: Smoking status: Patient/guardian denies using tobacco. - Ebola Screening: : No symptoms or risks identified at this time. - Family history:: not pertinent. - Hospitalizations: : No recent hospitalization is reported. ROS: 18:31 Constitutional: Negative for fever, chills, and weight loss, Eyes: Negative for injury, wa pain, redness, and discharge, ENT: Negative for injury, pain, and discharge, Neck: Negative for injury, pain, and swelling, Cardiovascular: Negative for chest pain, palpitations, and edema, Respiratory: Negative for shortness of breath, cough, wheezing, and pleuritic chest pain, Back: Negative for injury and pain, : Negative for injury, bleeding, discharge, and swelling, MS/Extremity: Negative for injury and deformity, Skin: Negative for injury, rash, and discoloration, Neuro: Negative for headache, weakness, numbness, tingling, and seizure, Psych: Negative for depression, anxiety, suicide ideation, homicidal ideation, and hallucinations. 18:31 Abdomen/GI: Positive for abdominal pain, Negative for nausea, vomiting, diarrhea. 18:31 All other systems are negative. Exam: 18:31 Constitutional: This is a well developed, well nourished patient who is awake, alert, wa and in no acute distress. Head/Face: Normocephalic, atraumatic. Eyes: Pupils equal round and reactive to light, extra-ocular motions intact. Lids and lashes normal. Conjunctiva and sclera are non-icteric and not injected. Cornea within normal limits. Periorbital areas with no swelling, redness, or edema. ENT: Nares patent. No nasal discharge, no septal abnormalities noted. Tympanic membranes are normal and external auditory canals are clear. Oropharynx with no redness, swelling, or masses, exudates, or evidence of obstruction, uvula midline. Mucous membranes moist. Neck: Trachea midline, no thyromegaly or masses palpated, and no cervical lymphadenopathy. Supple, full range of motion without nuchal rigidity, or vertebral point tenderness. No Meningismus. Chest/axilla: Normal chest wall appearance and motion. Nontender with no deformity. No lesions are appreciated. Cardiovascular: Regular rate and rhythm with a normal S1 and S2. No gallops, murmurs, or rubs. Normal PMI, no JVD. No pulse deficits. Respiratory: Lungs have equal breath sounds bilaterally, clear to auscultation and percussion. No rales, rhonchi or wheezes noted. No increased work of breathing, no retractions or nasal flaring. Back: No spinal tenderness. No costovertebral tenderness. Full range of motion. Skin: Warm, dry with normal turgor. Normal color with no rashes, no lesions, and no evidence of cellulitis. MS/ Extremity: Pulses equal, no cyanosis. Neurovascular intact. Full, normal range of motion. Neuro: Awake and alert, GCS 15, oriented to person, place, time, and situation. Cranial nerves II-XII grossly intact. Motor strength 5/5 in all extremities. Sensory grossly intact. Cerebellar exam normal. Normal gait. 18:31 Abdomen/GI: Inspection: abdomen appears normal, Bowel sounds: normal, in all quadrants, Palpation: soft, in all quadrants, mild abdominal tenderness, in the epigastric area. Vital Signs: 12:10 BP 148 / 95; Pulse 108; Resp 16; Temp 98; Pulse Ox 98% ; Weight 83.91 kg; Height 5 ft. hb 3 in. (160.02 cm); Pain 10/10; 14:35 BP 99 / 61; Pulse 82; Resp 17; Pulse Ox 99% on R/A; rv 15:56 BP 109 / 95; Pulse 81; Resp 18; Pulse Ox 100% on R/A; mg2 16:45 BP 108 / 87; Pulse 84; Resp 18; Temp 98; Pulse Ox 99% on R/A; rv 12:10 Body Mass Index 32.77 (83.91 kg, 160.02 cm) hb MDM: 13:27 Patient medically screened. wa 18:32 Differential diagnosis: cholecystitis, Cholelithiasis, gastritis, non-specific abd wa pain, pancreatitis, Perf. Gastric Ulcer. Data reviewed: vital signs, nurses notes. Test interpretation: by ED physician or midlevel provider: labs noted wnl. US RUQ no acute process. Response to treatment: the patient's symptoms have markedly improved after treatment. 09/26 13:29 Order name: Urine Dipstick--Ancillary (enter results); Complete Time: 14:00 09/26 13:29 Order name: Urine --Ancillary (enter results); Complete Time: 14:00 bd 09/26 14:46 Order name: Basic Metabolic Panel; Complete Time: 16:15 09/26 14:46 Order name: CBC with Diff 09/26 14:46 Order name: Hepatic Function; Complete Time: 16:15 09/26 14:46 Order name: Lipase; Complete Time: 16:15 09/26 14:35 Order name: FHT's; Complete Time: 14:35 mg2 09/26 14:46 Order name: IV Saline Lock; Complete Time: 14:57 09/26 14:46 Order name: Labs collected and sent; Complete Time: 14:57 09/26 14:46 Order name: US Abdomen Limited; Complete Time: 16:15 09/26 15:24 Order name: CBC Smear Scan EDMS Administered Medications: 15:00 Drug: NS 0.9% 1000 ml Route: IV; Rate: 1 bolus; Site: right antecubital; rv 16:44 Follow up: IV Status: Completed infusion rv 16:11 Drug: Pepcid 20 mg Route: IVP; Site: right antecubital; rv 16:44 Follow up: Response: No adverse reaction rv 16:30 Drug: Tylenol 1000 mg Route: PO; rv 16:45 Follow up: Response: No adverse reaction rv Disposition: 09/26/18 16:32 Discharged to Home. Impression: acute upper abdominal pain. - Condition is Stable. - Discharge Instructions: Abdominal Pain, Adult, [id number]. - Prescriptions for promethazine 12.5 mg Oral tablet - take 1 tablet by ORAL route 2 times per day As needed; 20 tablet. - Medication Reconciliation Form, Thank You Letter, Antibiotic Education, Prescription Opioid Use, Work release form, Family Work Release form. - Follow up: Private Physician; When: 1 - 2 days; Reason: Recheck today's complaints. - Problem is new. - Symptoms have improved. - Notes: you may take tylenol for pain as discussed. [facility] versus peptic ulcer disease. return here for severe, persistent, or worsening pain Signatures: Dispatcher [employer] EDKatie Garza RN RN aj1 Jessica Shannon RN RN hb Appiah, William, MD MD wa Gardose, Michele, RN RN mg2 Vicente, Ronaldo, RN RN rv Corrections: (The following items were deleted from the chart) 13:02 13:00 09/26/2018 13:00 Patient left the facility before being seen by provider. Reason aj1 stated they are leaving due to other. aj1 13:03 13:02 09/26/2018 13:00 Patient left the facility before being seen by provider. Reason aj1 stated they are leaving due to other. aj1 16:46 16:32 09/26/2018 16:32 Discharged to Home. Impression: acute upper abdominal pain. rv Condition is Stable. Forms are Medication Reconciliation Form, Thank You Letter, Antibiotic Education, Prescription Opioid Use. Follow up: Private Physician; When: 1 - 2 days; Reason: Recheck today's complaints. Problem is new. Symptoms have improved. wa
[2018-09-26 16:53] LABS: Blood Morphology Comment NOT SEEN (NOT SEEN); Platelet Estimate DECR; Urine White Blood Cell Casts OK
== END 2018-09-26 16:46 | disposition home or self-care (01) ==
LOC: ER 11:51
DX: O26.891 Other specified pregnancy related conditions, first trimester (principal); Z3A.14 14 weeks gestation of pregnancy
CPT/HCPCS: 96361; 85025; 80048; 36415; 81025; 80076; 81003; 83690; 76705; 96374; 99284; J7030

== ENCOUNTER 2021-06-18 08:01 | Day surgery (SDC) | payer BC, OTHER ==
[2021-06-18 08:24] LABS: Specific Gravity > 1.030 (1.005-1.030)
[2021-06-18] MEDS: Ringers Lactate 1,000 ML IV ONE ×2 (08:34→09:43)
[2021-06-18] MEDS ORDERED: propofoL 200 MG/20 ML VIAL IV ONE ×2 (09:36)
--- NOTE | 2021-06-18 10:12 | ENDO RPT ---
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 ESTIMATED BLOOD LOSS: None CONSENT: The patient understands the risks and benefits of the procedure and understands that these risks include, but are not limited to: sedation, allergic reaction, infection, perforation and/or bleeding. Alternative means of evaluation and treatment include, among others: physical exam, x-rays, and/or surgical intervention. The patient elects to proceed with this endoscopic procedure. DESCRIPTION OF PROCEDURE: During intra-op preparation period all mechanical medical equipment was checked for proper function. Hand hygiene and appropriate measures for infection prevention was taken. Procedure, possible complications, alternatives including, but not limited to possibility of bleeding, perforation, tear, infection, sepsis, need for surgery, need for blood transfusion, were explained to the patient. After the risks, benefits and alternatives of the procedure were thoroughly explained, Informed consent was verified, confirmed and timeout was successfully executed by the treatment team. The patient was placed in the left lateral position. A digital rectal exam was performed and revealed no abnormalities of the rectum. After appropriate level of anesthesia, the scope was passed. The EC-[id number] ([id number]) endoscope was introduced through the anus and advanced to the terminal ileum which was intubated for a short distance. The quality of the prep was good. The instrument was then slowly withdrawn as the colon was fully examined. Scope withdrawal time was 7 minutes. COLON FINDINGS: Small internal hemorrhoids were found. Retroflexed views revealed small hemorrhoids. The scope was then completely withdrawn from the patient and the procedure terminated. ADVERSE EVENTS: There were no complications. IMPRESSIONS: 1. Small internal hemorrhoids 2. Intubation to terminal ileum 3. Personal history of colon polyps RECOMMENDATIONS: fiber rich diet RECALL: Return in 3-5 year(s) for Colonoscopy. Amos Nicole Dr eSigned: Amos Nicole Dr 06/18/2021 10:11 AM cc: Merced Conroy CPT CODES: ICD9 CODES: PATIENT NAME: Brown Ivette A. MR#: [id number]
[2021-06-18 10:39] VITALS: TEMP 97.8
[2021-06-18 10:41] VITALS: BP 149/59; O2SAT 97
== END 2021-06-18 10:35 | disposition home or self-care (01) ==
LOC: OR 08:01
PROVIDERS: ATTEND Internal Medicine Gastroenterology
PROC: 0DJD8ZZ Inspection of Lower Intestinal Tract, Via Natural or Artificial Opening Endoscopic (ICD-10-PCS; principal; 2021-06-18 09:30)
DX: Z86.010 Personal history of colon polyps (principal); Z83.79 Family history of other diseases of the digestive system; K64.8 Other hemorrhoids; F41.8 Other specified anxiety disorders; Z20.822 Contact with and (suspected) exposure to COVID-19
CPT/HCPCS: 81025; 45378; U0003; J2704 ×2; J7120